=== PATIENT | male | born 1960 | race Caucasian/White ===

== ENCOUNTER 2016-09-15 18:50 | Inpatient (IN) | payer BC ==
[2016-09-15] MEDS ORDERED: Dextrose 50% Syringe 50 ML* 25 GM/50 ML SYRINGE IV PUSH PRN (21:00)
[2016-09-15 21:33] LABS: Hematocrit 45 % (42-52); Hemoglobin 14.7 g/dl (14.0-18.0); Mean Corpuscular HGB Conc 33 g/dl (31-36); Mean Corpuscular Hemoglobin 27 pg (27-31); Mean Corpuscular Volume 83 fL (80-94); Mean Platelet Volume 8 um3 (7.4-10.4); Red Cell Distribution Width 14 % (10.5-15); White Blood Count 9.6 10^3/ul (3.5-10.8)
[2016-09-15 21:47] LABS: Albumin 3.7 g/dL (3.2-5.2); BUN/Creatinine Ratio 22.2 (8-20); Calcium 8.7 mg/dL (8.6-10.3); EGFR African American 128.2 (>60); EGFR Non-African American 99.7 (>60); Globulin 2.8 g/dL (2-4); Total Bilirubin 0.3 mg/dL (0.2-1.0); Total Protein 6.5 g/dL (6.4-8.9)
[2016-09-15 21:51] LABS: Potassium 4.1 mmol/L (3.5-5.0)
[2016-09-15] MEDS ORDERED: Vancomycin(*) 1,500 MG in NS 0.9% 250 ML* 250 ML IVPB ONE (21:51)
[2016-09-15] MEDS ORDERED: Piperac/Tazob 3.375 gm in NS* 3.375 GM/100 ML BAG IVPB ONE (22:00)
[2016-09-15] MEDS ORDERED: Vancomycin(*) 0 MG in NS 0.9% 250 ML* 250 ML IVPB SCH (22:00)
[2016-09-15] MEDS ORDERED: Vancomycin per Pharmacy* NOTE FOLLOW UP PRN (22:02)
--- NOTE | 2016-09-15 22:43 | RAD ---
Indication: Right upper extremity edema. Duplex Doppler sonography of the right upper extremity deep venous system was performed. The right internal jugular vein demonstrates normal phasic flow. Bilaterally the subclavian veins demonstrates normal phasic flow. The right axillary vein, brachial vein, basilic vein, cephalic vein, radial vein and ulnar vein are patent and compressible. IMPRESSION: No evidence of deep venous thrombosis of the right upper extremity is noted.
[2016-09-15] MEDS: Heparin VIAL(*) 5000 UNITS/ML VIAL (FIVE THOUSAND) SUBCUT SCH (22:50)
[2016-09-16] MEDS: Insulin LISPRO* 1 UNITS UNIT SUBCUT SCH ×5 (01:13→20:53)
--- NOTE | 2016-09-16 01:35 | ED ---
Rik Lawrence Alok, scribed for Oswaldo Slade MD on 09/15/16 at 2131 . Skin Complaint - HPI Summary HPI Summary: 55M presents to the ED for erythema and edema of the right arm. Pt states what started as a bite on his right elbow turned to redness spreading from the right elbow down to right hand. [facility] and told to come to the ED if redness spread past certain point. Pt was given Keflex antibiotics. Pt denies fever, CP, SOB. Pt denies h/o DVT. Pt notes back problems and associated medications. PSHx includes gastric bypass surgery. - History of Current Complaint Chief Complaint: EDExtremityUpper Time Seen by Provider: 09/15/16 21:10 Stated Complaint: RIGHT ARM INFECTION COMMING FROM DR DONNA Echevarria Obtained From: Patient Onset/Duration: Started Days Ago, Still Present Skin Exposure Onset/Duration: Days Ago Timing: Constant Onset Severity: Moderate Current Severity: Moderate Pain Intensity: 0 Pain Scale Used: 0-10 Numeric Skin Location: Arm Character: Swelling, Redness - Allergy/Home Medications Allergies/Adverse Reactions: Allergies Allergy/AdvReac Type Severity Reaction Status Date / Time Morphine [From MS Contin] AdvReac Fatigue Verified 07/24/16 09:52 Home Medications: Home Medications Amitriptyline TAB* [Elavil TAB*] 20 mg PO BEDTIME 09/15/16 [History Confirmed ] Gabapentin CAP(*) [Neurontin 300 CAP(*)] 300 mg PO TID 09/15/16 [History Confirmed 09/15/16] fentaNYL PATCH 25 MCG/HR* [Duragesic PATCH 25 Mcg/Hr*] 25 mcg TRANSDERM Q72H [History Confirmed 09/15/16] metFORMIN* [Glucophage 500 MG TAB *] 500 mg PO QID 09/15/16 [History Confirmed 09/15/16] PMH/Surg Hx/FS Hx/Imm Hx Endocrine/Hematology History: Denies: Hx Diabetes Cardiovascular History: Denies: Hx Hypertension, Hx Pacemaker/ICD GI History: Reports: Hx Gastroesophageal Reflux Disease History: Denies: Hx Dialysis, Hx Renal Disease Musculoskeletal History: Reports: Hx Arthritis, Hx Back Problems Sensory History: Denies: Hx Hearing Aid Neurological History: Reports: Other Neuro Impairments/Disorders - PAIN CLINIC PATIENT Psychiatric History: Reports: Hx Anxiety, Hx Attention Deficit Hyperactivity Disorder, Hx Depression Denies: Hx Panic Disorder - Cancer History Cancer Type, Location and Year: right shoulder melanoma - Surgical History Surgery Procedure, Year, and Place: left wrist, right shoulder melanoma removed. Gastric by-pass 05/2003 Carpal tunnel 05/1994. RADIOFREQUENCY ABLATION THERAPY LSP 2006 Infectious Disease History: No Infectious Disease History: Denies: Traveled Outside the [place] in Last 30 Days - Family History Known Family History: Negative: Diabetes - Social History Occupation: Employed Full-time Alcohol Use: Rare Substance Use Type: Reports: None Substance Use Comment - Amount & Last Used: fentanyl patch and hydrocodone Smoking Status (MU): Former Smoker Type: Cigarettes, Cigars Review of Systems Negative: Fever, Chills, Skin Diaphoresis Negative: Erythema - EYES Negative: Sore Throat Negative: Chest Pain Negative: Shortness Of Breath, Cough Negative: Abdominal Pain, Vomiting, Nausea Negative: dysuria, hematuria Negative: Myalgia, Edema Positive: Other - erythema and swelling right arm Neurological: Other - Negative: Dizziness All Other Systems Reviewed And Are Negative: Yes Physical Exam - Summary Physical Exam Summary: Constitutional: Well-developed, Well-nourished, Alert. (-) Distressed Skin: Erythema induration right elbow spreading down to right hand. Distal pulses intact. HENT: Normocephalic; Atraumatic Eyes: Conjunctiva normal Neck: Musculoskeletal ROM normal neck. (-) JVD, (-) Stridor, (-) Tracheal deviation Cardio: Rhythm regular, rate normal, Heart sounds normal; Intact distal pulses; The pedal pulses are 2+ and symmetric. Radial pulses are 2+ and symmetric. (-) Murmur Pulmonary/Chest wall: Effort normal. (-) Respiratory distress, (-) Wheezes, (-) Rales Abd: Soft, (-) Tenderness, (-) Distension, (-) Guarding, (-) Rebound Musculoskeletal: Erythema induration right elbow spreading down to right hand. Distal pulses intact. Lymph: (-) Cervical adenopathy Neuro: Alert, Oriented x3 Psych: Mood and affect Normal Triage Information Reviewed: Yes Vital Signs On Initial Exam: Initial Vitals Temp Pulse Resp BP Pulse Ox 97.2 F 97 20 150/83 98 09/15/16 18:59 09/15/16 18:59 09/15/16 18:59 09/15/16 18:59 09/15/16 18:59 Vital Signs Reviewed: Yes - [place] Coma Scale Coma Scale Total: 15 Diagnostics - Vital Signs Vital Signs Temp Pulse Resp BP Pulse Ox 09/15/16 21:14 97.9 F 88 16 148/78 97 09/15/16 20:09 98.1 F 96 16 137/83 98 09/15/16 19:01 98.0 F 92 20 150/83 99 09/15/16 18:59 97.2 F 97 20 150/83 98 - Laboratory Result Diagrams: 09/15/16 21:25 09/15/16 21:25 Lab Statement: Any lab studies that have been ordered have been reviewed, and results considered in the medical decision making process. Course/Dx - Course Course Of Treatment: Spoke with Dr Smith who will is PT's PCP and will admit pt and make all future orders - Diagnoses Provider Diagnoses: Right arm cellulitis - Physician Notifications Discussed Care Of Patient With: Dr. Smith (Hospitalist and Pt PCP) @ 2114 - Will admit pt and is in charge of all future orders. Discharge - Discharge Plan Condition: Stable Disposition: ADMITTED TO [facility] Referrals: Colton Garcia, LOG DRIVER [Primary Care Provider] - The documentation as recorded by the Rik herrera Alok accurately reflects the service I personally performed and the decisions made by , Oswaldo Slade MD.
[2016-09-16] MEDS: Piperac/Tazob 3.375 gm in NS* 3.375 GM/100 ML BAG IVPB SCH ×3 (05:29→20:50)
--- NOTE | 2016-09-16 07:50 | PN ---
Subjective Date of Service: 09/16/16 Interval History: Mr. Mckeon notes that the redness to his right arm has decreased though he continues to have swelling from his elbow down into his hand. He denies other complaint including chest pain, SOB, nausea, or abdominal pain. Objective Active Medications: Hydrocodone Bitart/Acetaminophen ([place] 5-325 Tab*) 1 tab PO Q4H PRN Bupropion HCl (Wellbutrin Xl *) 450 mg PO QAM [facility] Dextrose (D50w Syringe 50 Ml*) 12.5 gm IV PUSH .FOR FS < 60 - SS PRN Gabapentin (Neurontin Cap(*)) 300 mg PO TID [facility] Heparin Sodium (Porcine) (Heparin Vial(*)) 5,000 units SUBCUT Q12HR [facility] Piperacillin Sod/Tazobactam Sod (Zosyn 3.375 Gm In Ns Premix*) 3.375 gm in 100 mls @ 25 mls/hr IVPB Q8H [facility] Vancomycin HCl 1,250 mg/ (Sodium Chloride) 250 mls @ 166.667 mls/hr IVPB Q8H [facility] Insulin Human Lispro (Humalog*) 0 units SUBCUT ACHS [facility] Metformin HCl (Glucophage*) 1,000 mg PO 0800,1700 [facility] Non-Formulary Medication (Magnesium Gluconate [Magnesium]) 30 mg PO DAILY [facility] Omeprazole (Prilosec Cap*) 20 mg PO BID [facility] Pharmacy Consult (Vancomycin Per Pharmacy*) 1 note FOLLOW UP . PRN Pharmacy Profile Note (Vancomycin Trough Check) 1 note FOLLOW UP 0730 ONE Potassium Chloride (Klor Con Er Tab*) 10 meq PO BID [facility] Trazodone HCl (Desyrel Tab*) 200 mg PO BEDTIME [facility] Vital Signs 09/15/16 09/15/16 09/15/16 21:14 22:01 22:44 Temperature 97.9 F 98.8 F 98.8 F Pulse Rate 88 88 88 Respiratory 16 16 16 Rate Blood Pressure 148/78 141/76 141/76 (mmHg) O2 Sat by Pulse 97 99 99 Oximetry 09/16/16 09/16/16 00:24 04:29 Temperature 97.6 F Pulse Rate 79 Respiratory 16 16 Rate Blood Pressure 131/70 (mmHg) O2 Sat by Pulse 98 Oximetry Oxygen Devices in Use Now: None Appearance: Male lying in bed in NAD Eyes: No Scleral Icterus Ears/Nose/Mouth/Throat: Mucous Membranes Moist Neck: NL Appearance and Movements; NL JVP, Trachea Midline Respiratory: Symmetrical Chest Expansion and Respiratory Effort, Clear to Auscultation Cardiovascular: NL Sounds; No Murmurs; No JVD, No Edema Abdominal: NL Sounds; No Tenderness; No Distention Lymphatic: No Cervical Adenopathy Extremities: - - Right upper extremity edema 1-2+ from elbow down to hand, minimal impairment to range of motion to right elbow with pain limited maximal extension Skin: - - draining abscess to right lateral elbow, superior to the olecranon head Neurological: Alert and Oriented x 3, NL Muscle Strength and Tone Result Diagrams: 09/15/16 21:25 09/15/16 21:25 Assess/Plan/Problems-Billing Assessment: Mr. Mckeon is a 55 yo male with a PMH of DM, gastric bypass surgery, and depression who was admitted on 09/15/16 with right arm cellulitis. - Patient Problems (1) Cellulitis of right arm Comment: Failed outpatient tx with keflex. Wound culture pending, high suspicion for MRSA, continue Zosyn and vanco for now. Good ROM without evidence of joint involvement. US ordered. (2) Depression Comment: Continue wellbutrin. (3) Diabetes Comment: Hold metformin. Continue lispro SSI coverage with meals. (4) DVT prophylaxis Comment: Heparin SQ. (5) Full code status Status and Disposition: Inpatient. Anticipate discharge to home.
[2016-09-16] MEDS ORDERED: Vancomycin(*) 1,250 MG in NS 0.9% 250 ML* 250 ML IVPB SCH (08:00)
[2016-09-16] MEDS ORDERED: metFORMIN* 1,000 MG TAB PO SCH (08:00)
[2016-09-16 08:54] LABS: C Reactive Protein 15.28 mg/L (< 5.00)
[2016-09-16] MEDS: Omeprazole CAP* 20 MG PO SCH ×2 (09:01→20:52)
[2016-09-16] MEDS: Heparin VIAL(*) 5000 UNITS/ML VIAL (FIVE THOUSAND) SUBCUT SCH ×2 (09:01→20:53)
[2016-09-16] MEDS: Gabapentin CAP(*) 300 MG PO SCH ×3 (09:02→20:51)
[2016-09-16] MEDS: BuPROPion XL* 150 MG TAB.XL PO SCH (09:04)
[2016-09-16] MEDS: Potassium Chlor TAB* 10 MEQ TAB.ER PO SCH ×2 (09:07→20:53)
[2016-09-16] MEDS: HYDROcodone/ACETAMIN 5-325 MG* 1 TAB PO PRN ×3 (09:18→23:52)
[2016-09-16] MEDS: MAGNESIUM GLUCONATE 30 MG PO SCH (09:40)
[2016-09-16] MEDS: Vancomycin(*) 1,250 MG in NS 0.9% 250 ML* 250 ML IVPB SCH ×2 (10:10→18:40)
--- NOTE | 2016-09-16 16:11 | RAD ---
HISTORY: Right elbow abscess COMPARISONS: None TECHNIQUE: Multiple transverse and longitudinal ultrasound images were obtained of the area of redness and palpable abnormality of the right elbow using grayscale and color Doppler imaging FINDINGS: There is extensive subcutaneous edema. There is a complex loculated fluid collection measuring 2.1 x 1 x 0.6 cm in size. There is no significant hypervascularity and color Doppler imaging. IMPRESSION: LOCULATED FLUID COLLECTION. GIVEN HISTORY OF REDNESS AND DRAINAGE, ABSCESS IS WITHIN THE DIFFERENTIAL. DEPENDING ON THE LOCATION, OLECRANON BURSITIS, INCLUDING COMPLICATED BURSITIS, IS ALSO WITHIN THE DIFFERENTIAL.
[2016-09-16] MEDS ORDERED: traZODone TAB* 100 MG PO SCH (21:00)
--- NOTE | 2016-09-16 21:20 | HP ---
HISTORY AND PHYSICAL: DATE OF ADMISSION: 09/15/16 CHIEF COMPLAINT: Right arm swelling. HISTORY OF PRESENT ILLNESS: Mr. Mckeon is a 55-year-old man with type 2 diabetes who I saw in the office on the day of admission for right arm swelling. The patient was in urgent care on 09/13/16 and diagnosed with cellulitis that was due apparently to 2 bug bites that he scratched. He had erythema and pain and a burning sensation in the arm. He was sent home on Keflex 500 mg p.o. t.i.d. Since being discharged from the urgent care, he has had the redness spreading proximal and distal to the markings made there on the skin at the margin of his cellulitis. He denies any fever since discharge. Since going home, he has not been elevating his arms and has been going to work which seems to worsen the pain. PAST MEDICAL HISTORY: Includes: 1. Sleep apnea. 2. History of obesity with bariatric surgery. 3. Type 2 diabetes. 4. Chronic back pain. 5. Depression with ADD. 6. History of peptic ulcer disease with bleeding ulcers x3. PAST SURGICAL HISTORY: For the patient includes: 1. Left wrist fracture repair in the past. 2. Carpal tunnel release, 1994. 3. Melanoma removed, 1996, from right shoulder. 4. Gastric bypass, 2003. MEDICATIONS ON ADMISSION: 1. Metformin 1000 mg p.o. b.i.d. 2. Flonase nasal spray daily. 3. Wellbutrin XL 450 mg p.o. q.a.m. 4. Trazodone 200 mg p.o. q.h.s. 5. Pantoprazole 40 mg p.o. b.i.d. 6. Adderall 20 mg p.o. t.i.d. The Adderall is prescribed through Dr. Frazier. 7. Hydrocodone with acetaminophen 1 tab p.o. q.4 hours as needed, prescribed at the pain clinic. 8. Gabapentin 300 mg p.o. t.i.d. 9. Magnesium and zinc daily. ALLERGIES: MORPHINE. FAMILY HISTORY: Notable for father with diabetes, alive at 76. Mother alive at 74 without any medical issues. 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 He is . He is a former smoker. Denies alcohol or drug use. REVIEW OF SYSTEMS: The patient denies any fevers, weight loss, or anorexia. The patient denies any chest pain or palpitations. The patient denies any cough or shortness of breath. The patient denies any abdominal pain, nausea, or vomiting. Remainder of 14-point review of systems is negative other than mentioned in the HPI. PHYSICAL EXAMINATION GENERAL: He is a well-appearing middle-aged man in no acute distress. VITAL SIGNS: Temperature is 97.6, pulse 92, respirations 14, blood pressure 136 /82, O2 sat is 94% on room air. HEENT: Head is normocephalic, atraumatic. Sclerae anicteric. Pupils equal, round, reactive to light and accommodation. Oropharynx is moist. No lesions or exudate. NECK: No JVD. No carotid bruit. No thyromegaly. LUNGS: Clear to auscultation and percussion bilaterally. HEART: Regular rate and rhythm without murmurs or gallops. ABDOMEN: Soft, nontender, nondistended. Positive bowel sounds. EXTREMITIES: No peripheral edema. Dorsalis pedis pulses 1+ bilaterally. SKIN EXAM: Notable for extensive edema with pitting edema distally in the right arm. There is erythema that extends from the elbow proximally up past some purple lines in the upper biceps and triceps region up into the shoulder and down to the wrist which extends past the lines that were drawn 3 days ago. There is tenderness in the elbow area. Full range of motion of the joint. There is a dry punctate ulcer on the forearm laterally and a dry ulcer with a central purulent discharge overlying the olecranon bursa on the right. Pus was expressed from this and sent to laboratory from my office. NEUROLOGIC: Cranial nerves II through XII are intact. Motor strength is 5/5 throughout. Deep tendon reflexes are symmetric. LABORATORY DATA/DIAGNOSTIC STUDIES: White count is 9.6, hemoglobin is 14.7, hematocrit of 45%, platelets are 307. D-dimer is less than 200. Sodium is 133 , potassium 4.1, chloride 102, bicarb 22, BUN 18, creatinine 0.81, glucose is 235, calcium 8.7. Bilirubin 0.3, AST 20, ALT 23. Albumin 3.7. C-reactive protein is 15.2. Venous Doppler of the right upper extremity shows no DVT. ASSESSMENT AND PLAN: A 55-year-old man with cellulitis and small abscess of the right upper extremity, failing outpatient treatment with Keflex. The patient may have noncompliance with elevation and medication leading to failure or he may have a resistant organism such as MRSA. The patient will be admitted to the hospital and have the right arm elevated. He will have vancomycin and Zosyn to cover strep and staph and MRSA, specifically more completely. The cultures taken from the elbow in the office will be followed and may guide therapy. The patient is immunosuppressed mildly due to his diabetes. We will hold his metformin due to risk of infection and give him sliding scale insulin and potentially start basal insulin while he is here in the hospital. For pain control, he will continue his outpatient regimen of hydrocodone which he uses for his back pain. For depression, he will continue on his Wellbutrin and we can skip the Adderall while he is here in the hospital. DVT prophylaxis will be with sequential compression devices and ambulation. He is full code and his healthcare proxy will be his . [id number]/[facility] #: [id number] TIFFANIE
[2016-09-17] MEDS: Vancomycin(*) 1,250 MG in NS 0.9% 250 ML* 250 ML IVPB SCH (01:32)
--- NOTE | 2016-09-17 04:06 | CONS ---
ORTHOPEDIC CONSULT NOTE: DATE OF CONSULT: 09/16/16 CHIEF COMPLAINT: Right elbow wound, right upper extremity cellulitis. HISTORY OF PRESENT ILLNESS: Mr. Mckeon is a 55-year-old right-hand dominant male who noticed mul tiple bug bites along his right elbow and forearm approximately 1 week ago. Over the next 3 days, ferny mazariegos developed some redness along his entire forearm. He had a burning sensation in his arm and went t o urgent care. He was placed on Keflex. He then saw Dr. Smith, his primary care physician, in the o ffice on 09/15/16 with significant right upper extremity cellulitis. He had small open wounds along his right posterior elbow from a superficial abscess, which was draining purulence, which was cultu red by Dr. Smith. Dr. Smith send him to the emergency room for admission to [facility]. A t this point, the patient has been on IV antibiotics for almost 24 hours. He reports that his eryth wisam and pain in the forearm is improved dramatically. He has 3/10 pain in the right elbow. This declan n is localized right at the area of the bug bite. He does not have pain with motion at the elbow. He denies any numbness or tingling. Denies any recent fever. PAST MEDICAL HISTORY: 1. Type 2 diabetes. 2. History of obesity. 3. Sleep apnea. 4. Chronic back pain. 5. Depression. 6. ADD. 7. Peptic ulcer disease with bleeding ulcers in the past. PAST SURGICAL HISTORY: 1. Bariatric surgery. 2. Melanoma excision. 3. Carpal tunnel release. 4. Left wrist fracture. CURRENT MEDICATIONS: 1. Metformin 1000 mg p.o. b.i.d. 2. Flonase nasal spray daily. 3. Wellbutrin 450 mg p.o. q.a.m. 4. Trazodone 200 mg p.o. q.h.s. 5. Pantoprazole 40 mg p.o. b.i.d. 6. Adderall 20 mg p.o. t.i.d. 7. Hydrocodone 1 tab p.o. q.4 hours p.r.n. for pain. 8. Gabapentin 300 mg p.o. t.i.d. 9. Magnesium and zinc daily. ALLERGIES: MORPHINE. FAMILY HISTORY: Paternal diabetes. 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 He is mar ried. Former smoker. No alcohol or recreational drug use. REVIEW OF SYSTEMS: Fourteen systems were reviewed with the patient today. Positive for right arm sw elling, warmth and drainage, recent bug bite. The patient denies any fevers, chills, chest pain, sh ortness of breath, nausea, vomiting, headache or dizziness. Otherwise, review of systems is negativ e or not relevant according to the patient. PHYSICAL EXAM: Current vitals: Temperature 98.1, pulse 77, blood pressure 116/72. General: The nhan allen is a well-nourished male, in no apparent distress, alert and oriented x3, pleasant mood and ap propriate affect. HEENT: Atraumatic, normocephalic. Pupils are equal, round and reactive to light . Chest: Unlabored breathing. Right lower extremity: The patient's skin is intact. He has some swelling with minimal erythema al jose armando the forearm. He does have 3 punctate open wounds with some minimal purulent drainage around the posterolateral elbow near the olecranon bursa. No palpable fluid masses. There is hardened tissue near the 3 punctate wounds, a healed punctate wound with a scab along the dorsal forearm. The patie nt has full range of motion, full extension and 120 degrees of flexion at the elbow with full supina tion and pronation. No pain with range of motion. 5/5 biceps and triceps strength distally. He kincaid s full motion in his fingers and wrists. Full sensation to light touch in all nerve distributions a nd 2+ palpable radial pulse. LABORATORY VALUES: White blood cell is 9.6. CRP 15.2. Sodium 133, potassium 4.1. Hematocrit 45, p latelets 307. D-dimer less than 200. BUN and creatinine 18 and 0.81. There is a venous Doppler of the right upper extremity showing no DVT. There is a soft tissue ultra sound about the elbow on 09/16/16 showing loculated fluid collection 2 x 1 x 0.6, as well as extensi ve subcutaneous edema. ASSESSMENT AND PLAN: Mr. Mckeon is a 55-year-old gentleman with superficial abscess along the ri t posterior elbow due to a bug bite. This is draining on its own. I cannot palpate any soft tiss ue or fluid collections worth formally incising at this time. The cellulitis is rapidly improving w ith the vancomycin and Zosyn. The patient has full range of motion at the elbow without any pain. I have low suspicion that this infection approaches the elbow joint. For now, I would continue the IV vancomycin and Zosyn as this is significantly improving the patient . The open wound should be allowed to drain and I will follow him daily. If he is discharged to [facility] on p.o. antibiotics, I would like to him to follow up in my office within the next 7 days. Micro biology from 09/15/16 shows staph growth, but unclear whether this is MRSA or not. The patient was previously made n.p.o. before I saw him for possible formal operative incision and d rainage. At this time, I will cancel that status and allow him to eat. We will continue to watch t his patient closely. For now, we will not plan any surgical intervention. [id number]/[facility] #: [id number]
[2016-09-17] MEDS: Piperac/Tazob 3.375 gm in NS* 3.375 GM/100 ML BAG IVPB SCH (05:17)
[2016-09-17] MEDS: HYDROcodone/ACETAMIN 5-325 MG* 1 TAB PO PRN (07:31)
[2016-09-17 07:37] VITALS: BP 106/70
[2016-09-17] MEDS: Omeprazole CAP* 20 MG PO SCH (07:49)
[2016-09-17] MEDS: Potassium Chlor TAB* 10 MEQ TAB.ER PO SCH (07:49)
[2016-09-17] MEDS: Heparin VIAL(*) 5000 UNITS/ML VIAL (FIVE THOUSAND) SUBCUT SCH (07:50)
[2016-09-17] MEDS: BuPROPion XL* 150 MG TAB.XL PO SCH (07:50)
[2016-09-17] MEDS: Gabapentin CAP(*) 300 MG PO SCH (07:50)
[2016-09-17] MEDS: Insulin LISPRO* 1 UNITS UNIT SUBCUT SCH (07:51)
[2016-09-17] MEDS: MAGNESIUM GLUCONATE 30 MG PO SCH (07:52)
[2016-09-17 08:02] LABS: Hematocrit 44 % (42-52); Hemoglobin 14.2 g/dl (14.0-18.0); Mean Corpuscular HGB Conc 33 g/dl (31-36); Mean Corpuscular Hemoglobin 27 pg (27-31); Mean Corpuscular Volume 83 fL (80-94); Mean Platelet Volume 8 um3 (7.4-10.4); Red Blood Count 5.24 10^6/ul (4.0-5.4); Red Cell Distribution Width 14 % (10.5-15); White Blood Count 8.1 10^3/ul (3.5-10.8)
--- NOTE | 2016-09-17 08:22 | PN ---
Subjective Date of Service: 09/17/16 Interval History: Mr. Mckeon reports feeling well this morning. He continues to note improvement in the pain and swelling to his right arm. He denies other complaint including chest pain, SOB, nausea, or abdominal pain. Objective Active Medications: Hydrocodone Bitart/Acetaminophen ([place] 5-325 Tab*) 1 tab PO Q4H PRN Bupropion HCl (Wellbutrin Xl *) 450 mg PO QAM [facility] Dextrose (D50w Syringe 50 Ml*) 12.5 gm IV PUSH .FOR FS < 60 - SS PRN Gabapentin (Neurontin Cap(*)) 300 mg PO TID [facility] Heparin Sodium (Porcine) (Heparin Vial(*)) 5,000 units SUBCUT Q12HR [facility] Piperacillin Sod/Tazobactam Sod (Zosyn 3.375 Gm In Ns Premix*) 3.375 gm in 100 mls @ 25 mls/hr IVPB Q8H [facility] Vancomycin HCl 1,250 mg/ (Sodium Chloride) 250 mls @ 166.667 mls/hr IVPB 0200, 1000,1800 [facility] Insulin Human Lispro (Humalog*) 0 units SUBCUT ACHS [facility] Non-Formulary Medication (Magnesium Gluconate [Magnesium]) 30 mg PO DAILY [facility] Pto:Nfm:Calcium 1000mg, Magnesium 400mg, Zinc 25mg 3 dose PO BID [facility] Omeprazole (Prilosec Cap*) 20 mg PO BID [facility] Pharmacy Consult (Vancomycin Per Pharmacy*) 1 note FOLLOW UP . PRN Pharmacy Profile Note (Vancomycin Trough Check) 1 note FOLLOW UP 0730 ONE Potassium Chloride (Klor Con Er Tab*) 10 meq PO BID [facility] Trazodone HCl (Desyrel Tab*) 200 mg PO BEDTIME [facility] Vital Signs 09/16/16 09/16/16 09/16/16 09:02 09:18 11:18 Temperature Pulse Rate Respiratory 16 16 18 Rate Blood Pressure (mmHg) O2 Sat by Pulse Oximetry 09/16/16 09/16/16 09/16/16 12:28 14:05 14:06 Temperature 98.1 F Pulse Rate 82 Respiratory 16 18 18 Rate Blood Pressure 130/77 (mmHg) O2 Sat by Pulse 97 Oximetry 09/16/16 09/16/16 09/16/16 16:05 16:07 19:28 Temperature 98.3 F 98.6 F Pulse Rate 81 81 Respiratory 18 16 17 Rate Blood Pressure 137/80 133/85 (mmHg) O2 Sat by Pulse 97 98 Oximetry 09/16/16 09/16/16 09/16/16 20:00 20:51 22:51 Temperature Pulse Rate Respiratory 16 16 16 Rate Blood Pressure (mmHg) O2 Sat by Pulse Oximetry 09/16/16 09/16/16 09/16/16 23:40 23:52 23:54 Temperature 98.1 F Pulse Rate 77 Respiratory 17 16 Rate Blood Pressure 137/119 116/72 (mmHg) O2 Sat by Pulse 98 Oximetry 09/17/16 09/17/16 09/17/16 01:52 04:33 07:31 Temperature 97.5 F Pulse Rate 64 Respiratory 16 17 16 Rate Blood Pressure 126/70 (mmHg) O2 Sat by Pulse 98 Oximetry 09/17/16 09/17/16 07:37 07:50 Temperature 97.7 F Pulse Rate 73 Respiratory 17 18 Rate Blood Pressure 106/70 (mmHg) O2 Sat by Pulse 97 Oximetry Oxygen Devices in Use Now: None Appearance: Male lying in bed in NAD Eyes: No Scleral Icterus Ears/Nose/Mouth/Throat: Mucous Membranes Moist Neck: Trachea Midline Respiratory: Symmetrical Chest Expansion and Respiratory Effort, Clear to Auscultation Cardiovascular: NL Sounds; No Murmurs; No JVD, No Edema Abdominal: NL Sounds; No Tenderness; No Distention Lymphatic: No Cervical Adenopathy Extremities: - - Erythema and edema to right arm mostly resolved. Skin: - - Persistent small draining wound to Neurological: Alert and Oriented x 3, NL Muscle Strength and Tone Nutrition: Taking PO's Result Diagrams: 09/17/16 07:52 09/15/16 21:25 Microbiology and Other Data: Microbiology 09/15/16 22:30 Aerobic Blood Culture - Preliminary Blood Venous No Growth Day 1 Anaerobic Blood Culture - Preliminary No Growth Day 1 09/15/16 22:25 Aerobic Blood Culture - Preliminary Blood Venous No Growth Day 1 Anaerobic Blood Culture - Preliminary No Growth Day 1 09/16/16 08:15 Gram Stain - Final Elbow Right Assess/Plan/Problems-Billing Assessment: Mr. Mckeon is a 55 yo male with a PMH of DM, gastric bypass surgery, and depression who was admitted on 09/15/16 with right arm cellulitis. - Patient Problems (1) Cellulitis of right arm Comment: MSSA, discharge to home on bactrim. Local wound care to keep area clean and dry. (2) Depression Comment: Continue wellbutrin. (3) Diabetes Comment: Resume metformin. (4) DVT prophylaxis Comment: Heparin SQ. (5) Full code status Status and Disposition: Inpatient. Discharge to home.
[2016-09-17 08:23] LABS: HDL Cholesterol 29.9 mg/dL
[2016-09-17] MEDS ORDERED: CALCIUM 1000 MG PO SCH (09:00)
[2016-09-17] MEDS ORDERED: MAGNESIUM 400 MG PO SCH (09:00)
[2016-09-17] MEDS ORDERED: ZINC 25 MG PO SCH (09:00)
[2016-09-17 09:24] LABS: Vancomycin Trough 14.3 mcg/mL
[2016-09-17] MEDS ORDERED: Vancomycin Trough Check NOTE FOLLOW UP ONE (10:00)
--- NOTE | 2016-09-17 13:16 | DS ---
[facility] MEDICINE DISCHARGE SUMMARY: DATE OF ADMISSION: 09/15/16 DATE OF DISCHARGE: 09/17/16 PRIMARY CARE PROVIDER: Dr. Jameel Smith. ATTENDING PHYSICIAN: Dr. Huseyin Rand *(dictation provided by Vanessa Moy NP ). PRIMARY DIAGNOSIS: Right arm abscess with methicillin-sensitive Staphylococcus aureus. SECONDARY DIAGNOSES: 1. Sleep apnea. 2. History of obesity with bariatric surgery. 3. Type 2 diabetes, non-insulin dependent. 4. Chronic back pain. 5. Depression with attention deficit disorder. 6. History of peptic ulcer disease. PAST SURGICAL HISTORY: 1. Left wrist fracture with repair in the past. 2. Carpal tunnel release, 1994. 3. Melanoma removed, 1996. 4. Gastric bypass, 2003. MEDICATIONS AT THE TIME OF DISCHARGE: 1. Bactrim DS 1 tab p.o. b.i.d. x7 days. 2. Metformin 1000 mg p.o. b.i.d. 3. Flonase nasal spray daily. 4. Wellbutrin XL 450 mg p.o. q.a.m. 5. Trazodone 200 mg p.o. q.h.s. 6. Pantoprazole 40 mg p.o. b.i.d. 7. Adderall 20 mg p.o. t.i.d. 8. Hydrocodone with acetaminophen 1 tab p.o. q.4 hours p.r.n. 9. Gabapentin 300 mg p.o. t.i.d. 10. Mag and zinc daily. HOSPITAL COURSE: Mr. Mckeon is a 55-year-old male with a past medical history as outlined above, who presented to the emergency room on 09/15/16 with concern for right arm swelling. Please see the dictated H and P from Dr. Smith for complete details. In brief, the patient had suspected a bug bite on his arm on 09/13/16 and was seen at urgent care for concern of erythema, pain, and burning to the arm. He was started on Keflex, but saw worsening of erythema, pain, and swelling and therefore came to see Dr. Smith in his office and then to the emergency room for evaluation. In the emergency room, Mr. cMkeon was found to have significant erythema and edema to his right arm with a wound to the posterolateral aspect of his right elbow that was draining pus. Cultures were obtained and the patient was admitted for IV antibiotics due to failure of outpatient treatment with Keflex. Mr. Mckeon has had good resolution of his edema and erythema on vancomycin and Zosyn, awaiting cultures today. Culture from the wound grew Staphylococcus aureus such as methicillin sensitive. Mr. Mckeon is stable to be discharged home today. Complete a course of Bactrim. He has good range of motion at the elbow. He did have a soft tissue ultrasound on 09/16/16, which showed concern for possible olecranon bursitis and for this reason, he did see Dr. Mcghee from Orthopedic Surgery who felt that there was no joint involvement based on clinical exam and that the abscess itself is draining well with no need for further incision and drainage. Mr. Mckeon is medically stable for discharge to home today to follow up with Dr. Smith in the office as needed. DISPOSITION: Home. DIET: Consistent carbohydrate. ACTIVITY: As tolerated. FOLLOWUP PLANS: Please follow up with Dr. Smith after this acute hospitalization. TIME SPENT: Approximately 60 minutes were spent on the discharge of this patient, more than half that time spent with the patient at the bedside reviewing the events leading up to this hospitalization, performing the physical examination, and reviewing the plan of care. VANESSA MOY NP CC: Dr. Jameel Smith* [id number]/[facility] #: [id number] TIFFANIE
== END 2016-09-17 11:00 | disposition home or self-care (01) | DRG 383 ==
LOC: ED 18:50 → MED 20:54 → ED 21:34
PROVIDERS: ADMIT Internal Medicine; ATTEND Internal Medicine
DX: L02.413 Cutaneous abscess of right upper limb (principal); F32.9 Major depressive disorder, single episode, unspecified; B95.61 Methicillin susceptible Staphylococcus aureus infection as the cause of diseases classified elsewhere; E11.9 Type 2 diabetes mellitus without complications; F98.8 Other specified behavioral and emotional disorders with onset usually occurring in childhood and adolescence; G47.33 Obstructive sleep apnea (adult) (pediatric); M54.9 Dorsalgia, unspecified; Z98.84 Bariatric surgery status; Z85.820 Personal history of malignant melanoma of skin; Z79.84 Long term (current) use of oral hypoglycemic drugs; Z79.899 Other long term (current) drug therapy; Z88.5 Allergy status to narcotic agent; Z83.3 Family history of diabetes mellitus; Z87.891 Personal history of nicotine dependence
CPT/HCPCS: 36415; 80053; 80061; 80202; 82947; 83036; 85025; 85379; 86140; 87040; 87070; 87077; 87186; 87205; A9270-GY; J1644; J2543; J3370

== ENCOUNTER 2018-04-25 14:25 | Inpatient (IN) | payer BC ==
[2018-04-25] MEDS ORDERED: Ondansetron INJ* 2 MG/ML VIAL IV ONE (14:50)
[2018-04-25] MEDS ORDERED: Pantoprazole IV* 40 MG IV ONE (14:50)
[2018-04-25] MEDS ORDERED: NS 0.9% 1000 ML* 1,000 ML IV ONE (14:50)
--- NOTE | 2018-04-25 15:29 | ED ---
GI/ HPI - HPI Summary HPI Summary: A 57 y/o male presents to [facility] with a chief complaint of hematemesis since . The patient claims that he has been vomiting without having a bowel movement. He rates his pain as 0/10. He also c/o abd pain describing it as burning and cramping. He states that he had an ulcer and had a scope done in 2008. He claims that his heart rate is not usually high, he is not nervous and he denies taking blood thinners. - History of Current Complaint Chief Complaint: EDGIBleed Time Seen by Provider: 04/25/18 14:48 Stated Complaint: VOMITING BLOOD, PAIN IN STOMACH Hx Obtained From: Patient Onset/Duration: Started Hours Ago, Still Present Timing: Constant, Lasting Hours Severity: Mild Current Severity: Mild Pain Intensity: 0 Location of Pain: Diffuse Pain Characteristics: Cramping, Burning Associated Signs and Symptoms: Positive: Abdominal Pain Aggravating Factor(s): Nothing Alleviating Factor(s): Nothing - Additional Pertinent History Primary Care Physician: JAYDON - Allergy/Home Medications Allergies/Adverse Reactions: Allergies Allergy/AdvReac Type Severity Reaction Status Date / Time morphine AdvReac Fatigue Verified 04/25/18 17:32 PMH/Surg Hx/FS Hx/Imm Hx Endocrine/Hematology History: Denies: Hx Diabetes Cardiovascular History: Denies: Hx Hypertension, Hx Pacemaker/ICD GI History: Reports: Hx Gastroesophageal Reflux Disease History: Denies: Hx Dialysis, Hx Renal Disease Musculoskeletal History: Reports: Hx Arthritis, Hx Back Problems Sensory History: Reports: Hx Contacts or Glasses Denies: Hx Hearing Aid Opthamlomology History: Reports: Hx Contacts or Glasses Neurological History: Reports: Other Neuro Impairments/Disorders - PAIN CLINIC PATIENT Psychiatric History: Reports: Hx Anxiety, Hx Attention Deficit Hyperactivity Disorder, Hx Depression Denies: Hx Panic Disorder - Cancer History Cancer Type, Location and Year: right shoulder melanoma - Surgical History Surgery Procedure, Year, and Place: left wrist, right shoulder melanoma removed. Gastric by-pass 05/2003 Carpal tunnel 05/1994. RADIOFREQUENCY ABLATION THERAPY LSP 2006 - Immunization History Date of Tetanus Vaccine: unknown Date of Influenza Vaccine: NO Infectious Disease History: No Infectious Disease History: Denies: Traveled Outside the [place] in Last 30 Days - Family History Known Family History: Negative: Diabetes - Social History Alcohol Use: None Substance Use Type: Reports: None Substance Use Comment - Amount & Last Used: fentanyl patch and hydrocodone Smoking Status (MU): Former Smoker Type: Cigarettes, Cigars Review of Systems Negative: Fever Positive: Abdominal Pain, Other - positive: hematemesis Negative: Anxious All Other Systems Reviewed And Are Negative: Yes Physical Exam - Summary Physical Exam Summary: GENERAL: Patient is a well-developed and nourished M who is lying comfortable in the stretcher. Patient is not in any acute respiratory distress. HEAD AND FACE: Normocephalic EYES: PERRLA, EOMI x 2. EARS: Hearing grossly intact. MOUTH: Oropharynx within normal limits. NECK: Supple, trachea is midline, no adenopathy, no JVD, no carotid bruit. CHEST: Symmetric, no tenderness at palpation LUNGS: Clear to auscultation bilaterally. No wheezing or crackles. CVS: Regular rate and rhythm, S1 and S2 present, no murmurs or gallops appreciated. ABDOMEN: Tender in epigastric area. Bowel sounds are normal. No abdominal abnormal pulsations. EXTREMITIES: Full ROM in all major joints, no edema, no cyanosis or clubbing. NEURO: Alert and oriented x 3. No acute neurological deficits. Speech is normal and follows commands. SKIN: Dry and warm : Dark stool consistent with melena. Triage Information Reviewed: Yes Vital Signs On Initial Exam: Initial Vitals Temp Pulse Resp BP Pulse Ox 97.9 F 108 20 139/76 99 04/25/18 14:33 04/25/18 14:33 04/25/18 14:33 04/25/18 14:33 04/25/18 14:33 Vital Signs Reviewed: Yes Diagnostics - Vital Signs Vital Signs Temp Pulse Resp BP Pulse Ox 04/25/18 14:33 97.9 F 108 20 139/76 99 - Laboratory Result Diagrams: 04/27/18 06:57 04/27/18 06:57 Lab Statement: Any lab studies that have been ordered have been reviewed, and results considered in the medical decision making process. - CT abdomen/pelvis CT Interpretation Completed By: Radiologist Summary of CT Findings: MILDLY ENLARGED MESENTERIC LYMPH NODES. FATTY INFILTRATION OF LIVER. POSTSURGICAL CHANGE TO THE UPPER GI TRACT. ED physician has reviewed this imaging report. - EKG 14:58 Cardiac Rate: Tachycardia - 102 bpm EKG Rhythm: Sinus Tachycardia Summary of EKG Findings: Sinus tachycardia at 102 bpm, q waves seen in inferior leads. GIGU Course/Dx - Course Course Of Treatment: A 57 y/o male presents to [facility] with a chief complaint of hematemesis since 04/24/18. Workup is remarkable with the physical exam revealing tenderness in the epigastric area. exam revealed dark stool consistent with melena. Lab results were obtained. In the ED course the patient was given Zofran IV, Protonix IV and Sodium Chloride IV. Abdomen/pelvis CT impression: MILDLY ENLARGED MESENTERIC LYMPH NODES. FATTY INFILTRATION OF LIVER. POSTSURGICAL CHANGE TO THE UPPER GI TRACT. Dx: GI bleed. Case discussed with Dr. Acuña, hospitalist. I discussed results with patient. The patient agrees with this plan. - Diagnoses Provider Diagnoses: GI bleed - Physician Notifications Discussed Care Of Patient With: Sarkis Acuña Time Discussed With Above Provider: 15:50 Instructed by Provider To: Admit As Inpatient - Critical Care Time Critical Care Time: 30-74 min Discharge - Sign-Out/Discharge Documenting (check all that apply): Patient Departure - Admit - Discharge Plan Condition: Stable Disposition: ADMITTED TO [facility] - Billing Disposition and Condition Condition: STABLE Disposition: Admitted to [facility] - Attestation Statements Document Initiated by Scribe: Yes Documenting Scribe: George Leal Provider For Whom Crsithian is Documenting (Include Credential): Dallas Ray MD Scribe Attestation: IGeorge, scribed for Dallas Ray MD on 04/28/18 at 1115. Scribe Documentation Reviewed: Yes Provider Attestation: The documentation as recorded by the George herrera accurately reflects the service I personally performed and the decisions made by me, Christa Ray MD Status of Scribe Document: Viewed
[2018-04-25 15:38] LABS: ABS Basophils 0 10^3/ul (0-0.2); ABS Eosinophils 0.1 10^3/ul (0-0.6); ABS Lymphocytes 2.5 10^3/ul (1.0-4.8); ABS Monocytes 0.8 10^3/ul (0-0.8); ABS Neutrophils 7.5 10^3/ul (1.5-7.7); ABS Nucleated RBC 0 10^3/ul; Eosinophil % 0.7 %; Hematocrit 38 % (42-52); Hemoglobin 12.4 g/dl (14.0-18.0); Lymphocyte % 22.7 %; Mean Corpuscular HGB Conc 33 g/dl (31-36); Mean Corpuscular Hemoglobin 27 pg (27-31); Mean Corpuscular Volume 81 fL (80-94); Mean Platelet Volume 8.2 fL (7.4-10.4); Nucleated Red Blood Cells % 0; Platelet Count 382 10^3/ul (150-450); Red Blood Count 4.67 10^6/ul (4.00-5.40); Red Cell Distribution Width 15 % (10.5-15); White Blood Count 10.9 10^3/ul (3.5-10.8)
[2018-04-25] MEDS ORDERED: Pantoprazole* 80 mg IN NS 80 MG/250 ML BAG IVPB ONE (15:41)
[2018-04-25 15:53] LABS: Activated Partial Thrombo Time 25.3 seconds (26.0-36.3); INR 1.01 (0.77-1.02)
[2018-04-25 16:06] LABS: Albumin 4.1 g/dL (3.2-5.2); Albumin/Globulin Ratio 1.6 (1-3); BUN/Creatinine Ratio 35.3 (8-20); Calcium 9.2 mg/dL (8.6-10.3); EGFR Non-African American 121.1 (>60); Globulin 2.5 g/dL (2-4); Potassium 4.1 mmol/L (3.5-5.0); Total Bilirubin 0.4 mg/dL (0.2-1.0); Total Protein 6.6 g/dL (6.4-8.9)
[2018-04-25] MEDS ORDERED: Iodixanol* (CONTRAST) 320 MG/ML 100 ML SDV IV ONE (16:14)
[2018-04-25 17:16] LABS: BUN/Creatinine Ratio 35.3 (8-20); Calcium 8.3 mg/dL (8.6-10.3); EGFR Non-African American 121.1 (>60); Potassium 4.1 mmol/L (3.5-5.0)
--- NOTE | 2018-04-25 18:28 | HP ---
HISTORY AND PHYSICAL: DATE OF ADMISSION: 04/25/18 PRIMARY CARE PROVIDER: Colton Garcia. ADMITTING PHYSICIAN: Sarkis Acuña MD. CHIEF COMPLAINT: Coffee-ground emesis for 1 day, nausea x2 days, abdominal pain x1 day, and blood per stool x1 day. HISTORY OF PRESENT ILLNESS: Zac Mckeon is a 57-year-old male, past medical history of [id number]-[id number] diabetes type 2; obstructive sleep apnea, on CPAP; obesity, status post gastric bypass in 2003; ADD and depression ; reported gastric ulcers; melanoma; hypertension, who has recently been without insurance and has missed many of his medications over the last month and including his pantoprazole. He has been taking ibuprofen 600 mg about 4 times per week for his chronic back pain. Two days prior to admission, he developed nausea and day prior to admission at 1300, he developed coffee-ground emesis multiple times along with brown/black pasty bowel movements. Also multiple times, he was lightheaded and dizzy and short of breath. He denied any chest pain. He had upper quadrants and epigastric abdominal pain with that same time. He presented to the emergency room and is referred to hospitalist service for admission for concern for upper GI bleed. His hemoglobin is 12.4. He is tachycardic in the low 100s with blotchy skin, preserved blood pressures. He has had a CT abdomen and pelvis, which is pending read that was with IV contrast only. I have contacted Dr. Anabelle Cuba for GI consultation. He was recommended continuing the PPI IV that he has already been started on, clear liquid diet if not n.p.o. or least n.p.o. after midnight for potential endoscopy procedure. PAST MEDICAL HISTORY: Hypertension; morbid obesity, status post gastric bypass ; obstructive sleep apnea, on CPAP; heo-jrxokep-bcwdnnkmh diabetes type 2; chronic back pain; depression; ADD; peptic ulcer disease, reportedly x3, though the patient's denies that he has ever bled from these. PAST SURGICAL HISTORY: Left wrist fracture repair, carpal tunnel release in 1994, melanoma in 1996 from right shoulder, gastric bypass in 2003. MEDICATIONS: Include: 1. Wellbutrin 450 mg p.o. q.p.m. 2. Zinc gluconate 30 mg p.o. daily. 3. Metformin 1000 mg b.i.d. 4. Trazodone 100 mg p.o. at bedtime. 5. Pantoprazole 40 mg p.o. b.i.d. 6. Multivitamin 1 capsule p.o. daily. 7. Lisinopril 20 mg p.o. daily. 8. Ibuprofen 600 mg p.o. b.i.d. (he takes less frequently, approximately 4 times a week). 9. Hydrocodone/acetaminophen 5/325 mg 1 tablet p.o. t.i.d. p.r.n. 10. Gabapentin 300 mg p.o. t.i.d. 11. Calcium carbonate/vitamin D3 one each p.o. b.i.d. 12. Adderall 20 mg p.o. t.i.d. Of note, he has ran out of most of these medications between 1 and 3 weeks due to insurance lapse. FAMILY HISTORY: His father had diabetes. His mother is healthy. 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 He is . His is his medical surrogate, Alyson Mckeon. He desires to be a full code. He is a former smoker for 2 to 3 years as a teenager and then continued cigar smoking until 10 years ago. He denies any excessive alcohol use or drug use. REVIEW OF SYSTEMS: A complete 14-point review of systems is negative except as per HPI. PHYSICAL EXAMINATION GENERAL APPEARANCE: No acute distress, sitting in hospital bed, but with blotchy skin throughout his upper and lower extremities. HEENT: Normocephalic, atraumatic. Pupils are equal, round, and reactive to light. Extraocular motions intact. No scleral icterus. NECK: Supple. No cervical lymphadenopathy. LUNGS: Clear to auscultation bilaterally with no wheezing, rales, or rhonchi. CARDIOVASCULAR: Regular, tachycardic. No murmurs, rubs, or gallops. ABDOMEN: Soft, tender in the epigastric region. No rebound. No guarding. No Addison's sign. EXTREMITIES: Warm, blotchy skin. Pulses intact. NEUROLOGIC: Moving all extremities. Cranial nerves are grossly intact. DIAGNOSTIC STUDIES/LAB DATA: White count 10.9, hemoglobin 12.4, hematocrit 38 , platelets 382. INR 1.01. Sodium 135, potassium 4.1, chloride 99, carbon dioxide 22, anion gap 14, BUN 24, creatinine 0.68, glucose 212, lactic acid 1.8. Total bili 0.40, AST 14, ALT 23, alk phos 59, troponin 0.00, albumin 4.1 , lipase 43. Imaging: CT abdomen and pelvis with IV contrast is sharp, but read pending. ASSESSMENT AND PLAN: Zac Mckeon is a 57-year-old male with history of gastric bypass surgery and ulcers 10 years ago, who has been without his PPI for the last 3 to 4 weeks, although continues to use 600 ibuprofen approximately 4 times a week, presenting with coffee-ground emesis and melena, concerning for upper gastrointestinal bleed, appreciate assistance of GI physician, Dr. Anabelle Orlando. Continue PPI IV. Continue IV fluids. Put him n.p.o. midnight. Clear liquids until then. Telemetry monitoring, inpatient admission to [facility]. Hold his ibuprofen, q.6 CBCs, maintain 2 large-bore IVs at all times, 16 gauge or above. For his bxj-kruynyj-laxehhpou diabetes mellitus, hold his metformin, given IV contrast study, put him on a sliding scale insulin, Lispro, and rkbiw-jj-mhcn testing q.a.c. h.s. Hold his lisinopril in the setting of GI bleed. Continue his gabapentin and hydrocodone and acetaminophen and Wellbutrin and trazodone. He is a full code. Medical surrogate is his , Alyson Mckeon. [id number]/[facility] #: [id number] MTDD
[2018-04-25] MEDS: NS 0.9% 1000 ML* 1,000 ML IV SCH (18:35)
[2018-04-25] MEDS: BuPROPion XL* 150 MG TAB.XL PO SCH (20:41)
[2018-04-25] MEDS: traZODone TAB* 100 MG PO SCH (20:42)
[2018-04-25] MEDS: HYDROcodone/ACETAMIN 5-325 MG* 1 TAB PO PRN (20:47)
[2018-04-25 21:26] LABS: ABS Basophils 0.1 10^3/ul (0-0.2); ABS Eosinophils 0.3 10^3/ul (0-0.6); ABS Lymphocytes 3.1 10^3/ul (1.0-4.8); ABS Monocytes 0.9 10^3/ul (0-0.8); ABS Neutrophils 5.6 10^3/ul (1.5-7.7); ABS Nucleated RBC 0 10^3/ul; Eosinophil % 2.8 %; Hematocrit 32 % (42-52); Hemoglobin 10.3 g/dl (14.0-18.0); Lymphocyte % 30.8 %; Mean Corpuscular HGB Conc 32 g/dl (31-36); Mean Corpuscular Hemoglobin 26 pg (27-31); Mean Corpuscular Volume 81 fL (80-94); Mean Platelet Volume 8.1 fL (7.4-10.4); Nucleated Red Blood Cells % 0; Platelet Count 310 10^3/ul (150-450); Red Blood Count 3.93 10^6/ul (4.00-5.40); Red Cell Distribution Width 15 % (10.5-15)
[2018-04-26] MEDS: NS 0.9% 1000 ML* 1,000 ML IV SCH (02:43)
[2018-04-26 03:38] LABS: ABS Basophils 0.1 10^3/ul (0-0.2); ABS Eosinophils 0.3 10^3/ul (0-0.6); ABS Lymphocytes 2.5 10^3/ul (1.0-4.8); ABS Monocytes 0.6 10^3/ul (0-0.8); ABS Neutrophils 3.4 10^3/ul (1.5-7.7); ABS Nucleated RBC 0 10^3/ul; Eosinophil % 4.9 %; Hematocrit 30 % (42-52); Hemoglobin 9.8 g/dl (14.0-18.0); Lymphocyte % 36.1 %; Mean Corpuscular HGB Conc 33 g/dl (31-36); Mean Corpuscular Hemoglobin 27 pg (27-31); Mean Corpuscular Volume 82 fL (80-94); Mean Platelet Volume 7.9 fL (7.4-10.4); Nucleated Red Blood Cells % 0; Platelet Count 283 10^3/ul (150-450); Red Blood Count 3.65 10^6/ul (4.00-5.40); Red Cell Distribution Width 15 % (10.5-15)
[2018-04-26 06:29] LABS: BUN/Creatinine Ratio 27.4 (8-20); Calcium 7.6 mg/dL (8.6-10.3); EGFR Non-African American 111.6 (>60)
[2018-04-26] MEDS ORDERED: Acetaminophen TAB* 325 MG PO PRN (07:45)
[2018-04-26] MEDS ORDERED: Ondansetron INJ* 2 MG/ML VIAL IV PRN (07:45)
[2018-04-26] MEDS: Gabapentin CAP(*) 300 MG PO SCH ×3 (08:51→20:22)
[2018-04-26] MEDS ORDERED: fentaNYL* 50 MCG/ML 2 ML VIAL (100 MCG VIAL) ONE (11:09)
[2018-04-26] MEDS ORDERED: Midazolam* 1 MG/ML 10 ML VIAL (10 MG) ONE (11:09)
--- NOTE | 2018-04-26 13:48 | PN ---
Subjective Date of Service: 04/26/18 Interval History: Patient is feeling ok today with decreased epigastric pain and no melena, hematochezia, or hematemesis. Patient denies palpitations, dizziness, CP, SOB, F /C, diarrhea, dysuria, or other pain. Family History: Unchanged from Admission Social History: Unchanged from Admission Past Medical History: Unchanged from Admission Objective Active Medications: Acetaminophen (Tylenol Tab*) 650 mg PO Q6H PRN PRN Reason: FEVER/PAIN Hydrocodone Bitart/Acetaminophen ([place] 5-325 Tab*) 1 tab PO TID PRN PRN Reason: PAIN Last Admin: 04/25/18 20:47 Dose: 1 tab Bupropion HCl (Wellbutrin Xl *) 450 mg PO QPM [facility] Last Admin: 04/25/18 20:41 Dose: 450 mg Gabapentin (Neurontin Cap(*)) 300 mg PO TID [facility] Last Admin: 04/26/18 08:51 Dose: 300 mg Ondansetron HCl (Zofran Inj*) 4 mg IV Q6H PRN PRN Reason: NAUSEA Pantoprazole Sodium (Protonix Tab (Nf)) 40 mg PO BID [facility] Trazodone HCl (Desyrel Tab*) 100 mg PO BEDTIME [facility] Last Admin: 04/25/18 20:42 Dose: 100 mg Vital Signs - 8 hr 04/26/18 04/26/18 04/26/18 07:18 08:00 08:51 Temperature 98.0 F Pulse Rate 87 Respiratory 16 18 18 Rate Blood Pressure 129/73 (mmHg) O2 Sat by Pulse 97 Oximetry Oxygen Devices in Use Now: None Appearance: Patient is a 57yo male who appears stated age and is sitting in the bed in [facility]. Eyes: No Scleral Icterus, PERRLA Ears/Nose/Mouth/Throat: NL Teeth, Lips, Gums, Clear Oropharnyx, Mucous Membranes Moist Neck: NL Appearance and Movements; NL JVP, Trachea Midline Respiratory: Symmetrical Chest Expansion and Respiratory Effort, Clear to Auscultation Cardiovascular: NL Sounds; No Murmurs; No JVD, RRR, No Edema Abdominal: No Hepatosplenomegaly, - - Epigastric tenderness. Lymphatic: No Cervical Adenopathy Extremities: No Edema, No Clubbing, Cyanosis Skin: No Rash or Ulcers, No Nodules or Sclerosis Neurological: Alert and Oriented x 3, NL Sensation, NL Muscle Strength and Tone , - - CN II-XII intact. Result Diagrams: 04/26/18 03:31 04/26/18 05:07 Microbiology and Other Data: Microbiology 04/25/18 15:13 Stool Occult Blood (PUNEET) - Final Stool Assess/Plan/Problems-Billing Assessment: Patient is a 57yo male with a PMH for Gastric Bypass with PUD, BEREKET, DM II, who presents with abdominal pain, hematemesis, and melena who was found to have a duodenal ulcer and has no signs of ongoing bleeding. - Patient Problems (1) Duodenal ulcer Current Visit: Yes Status: Acute Comment: - Likely due to lack of PPI and NSAIDs - Transition to oral PPI BID for 2 months - No signs of ongoing bleeding - Appreciate GI input and endoscopy. (2) Anemia Current Visit: Yes Status: Acute Code(s): D64.9 - ANEMIA, UNSPECIFIED SNOMED Code(s): 579755583 Comment: - Due to acute blood loss - Continue frequent H/H checks (3) Diabetes Current Visit: No Status: Acute Code(s): E11.9 - TYPE 2 DIABETES MELLITUS WITHOUT COMPLICATIONS SNOMED Code(s): 76388160 Comment: - Resume metformin at discharge (4) Depression Current Visit: No Status: Acute Code(s): F32.9 - MAJOR DEPRESSIVE DISORDER, SINGLE EPISODE, UNSPECIFIED SNOMED Code(s): 23035053 Comment: - Continue wellbutrin. (5) DVT prophylaxis Current Visit: No Status: Acute Code(s): KGT7129 - SNOMED Code(s): 938195144 Comment: - SCDs with GI bleed (6) Full code status Current Visit: No Status: Acute Code(s): Z78.9 - OTHER SPECIFIED HEALTH STATUS SNOMED Code(s): 037870479 Status and Disposition: Inpatient for management of GI bleeding.
[2018-04-26] MEDS: HYDROcodone/ACETAMIN 5-325 MG* 1 TAB PO PRN (13:50)
[2018-04-26] MEDS: BuPROPion XL* 150 MG TAB.XL PO SCH (17:25)
[2018-04-26] MEDS: Omeprazole CAP* 20 MG PO SCH (20:22)
--- NOTE | 2018-04-26 20:22 | CONS ---
GASTROENTEROLOGY CONSULT: DATE OF CONSULT: 04/26/18 CONSULTING PHYSICIAN: Sarkis Acuña; Colton Garcia NP. REASON FOR CONSULTATION: Hematemesis and passage of melena x24 hours after running out of pantoprazole about a month ago. HISTORY OF PRESENT ILLNESS: This 57-year-old man states that he ran out of his pantoprazole a month ago. He had not been following up with his primary office , stating he could not afford to go. He now intends to do so and has set up a payment program. He began experiencing cramping epigastric pain. Then, it became worse over the last several days and he developed vomiting, which quickly looked coffee ground in nature, the same color of his blood he was passing per rectum. He had numerous black thick tarry stools on 04/24/18. He started taking [facility]uprofen through [facility] via prescription 600 mg twice a day about 2 months ago. He has history of chronic back pain. His GI history is complex including bariatric bypass in 2003 at [facility]. One day postop, he was bleeding and had to be reexplored and uncertain modifications to the surgery were done. He was transfused. He did lose substantial weight over the next couple of years. About 9 or 10 years ago, living in [place], [place], he was having some signs of bleeding and had an upper endoscopy, where he says an ulcer was found. That was apparently his first upper endoscopy. He really does not know much of the details. PAST MEDICAL HISTORY: 1. Hypertension. 2. Substantial obesity - down from 310 to the low 200s. 3. Sleep apnea. 4. AODM. 5. Depression. 6. Chronic low back pain. 7. Status post gastric bypass. MEDICATIONS: As an outpatient: He did run out of many of these 1. Wellbutrin 450. 2. Metformin 1000 b.i.d. 3. Trazodone 100 h.s. 4. Pantoprazole 40 mg once or twice a day (lapsed). 5. Lisinopril 20. 6. Ibuprofen 600 b.i.d., though he misses some doses. 7. Hydrocodone/acetaminophen 5/325. 8. Gabapentin. 9. Adderall 20 mg t.i.d. FAMILY HISTORY: His father had diabetes. 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 His , he says, is disabled, having had neurologic complications from the flu in 1997. She is, however, able to drive on good days. He smoked cigars till 10 years ago. REVIEW OF SYSTEMS: No history of syncope, IA, palpitations, valvular disease, TB, hemoptysis, seizures, CVA, hepatitis, jaundice. He did have a colonoscopy more than 10 years ago in [place], [place], though he cannot recall why it was done or the results. He denies any history of gastrointestinal malignancy in the family. PHYSICAL EXAM: He is a surprisingly healthy-appearing, mildly overweight middle - aged man in no distress. HEENT exam is unremarkable. He has no icterus. He has no adenopathy. The lungs are clear and heart sounds are normal. The abdomen is obese with upper midline vertical scar. There is no incisional hernia. Rectal is deferred. Extremities show no edema and pulses are intact. Neurologic is nonfocal. He is alert, oriented, animated, and cooperative. DIAGNOSTIC STUDIES/LAB DATA: Labs - initially, hemoglobin 12.4, hematocrit 38. BUN 24, creatinine 0.68. LFTs normal. Albumin 4.1. Imaging - CT of the abdomen shows no acute abnormality. IMPRESSION: This 57-year-old man, status post bariatric surgery with an unknown revision, has longstanding chronic back pain and [facility] the [facility]. He is, therefore, on a number of pain medicines including ibuprofen, which has just been started in the last 2 months. Unfortunately, he stopped taking pantoprazole shortly after starting the ibuprofen. The reason he has required pantoprazole manager long term care is unclear as needing to start peptic therapy ( presumably for GERD) is unusual after bypass with successful weight loss. He may have an atypical configuration of his stomach given reexploration and revision of his bariatric surgery. The current situation is certainly a setup for peptic ulcer disease. His old records will be requested. Upper endoscopy is indicated. [id number]/[facility] #: [id number] [facility]ITAL[facility]
[2018-04-26 21:59] LABS: ABS Basophils 0 10^3/ul (0-0.2); ABS Eosinophils 0.4 10^3/ul (0-0.6); ABS Monocytes 0.6 10^3/ul (0-0.8); ABS Neutrophils 4.5 10^3/ul (1.5-7.7); ABS Nucleated RBC 0 10^3/ul; Hematocrit 29 % (42-52); Hemoglobin 9.4 g/dl (14.0-18.0); Lymphocyte % 26.5 %; Mean Corpuscular HGB Conc 32 g/dl (31-36); Mean Corpuscular Hemoglobin 27 pg (27-31); Mean Corpuscular Volume 83 fL (80-94); Nucleated Red Blood Cells % 0; Platelet Count 269 10^3/ul (150-450); Red Blood Count 3.52 10^6/ul (4.00-5.40); Red Cell Distribution Width 15 % (10.5-15); White Blood Count 7.5 10^3/ul (3.5-10.8)
[2018-04-26] MEDS: traZODone TAB* 100 MG PO SCH (23:04)
[2018-04-27 07:12] LABS: ABS Basophils 0 10^3/ul (0-0.2); ABS Eosinophils 0.3 10^3/ul (0-0.6); ABS Lymphocytes 1.6 10^3/ul (1.0-4.8); ABS Monocytes 0.5 10^3/ul (0-0.8); ABS Neutrophils 3.6 10^3/ul (1.5-7.7); ABS Nucleated RBC 0 10^3/ul; Eosinophil % 5.1 %; Hematocrit 30 % (42-52); Hemoglobin 9.8 g/dl (14.0-18.0); Lymphocyte % 26.9 %; Mean Corpuscular HGB Conc 33 g/dl (31-36); Mean Corpuscular Hemoglobin 27 pg (27-31); Mean Corpuscular Volume 82 fL (80-94); Mean Platelet Volume 8.1 fL (7.4-10.4); Nucleated Red Blood Cells % 0; Platelet Count 257 10^3/ul (150-450); Red Blood Count 3.63 10^6/ul (4.00-5.40); Red Cell Distribution Width 16 % (10.5-15); White Blood Count 6.1 10^3/ul (3.5-10.8)
[2018-04-27 07:23] LABS: BUN/Creatinine Ratio 14.8 (8-20); Calcium 7.8 mg/dL (8.6-10.3); EGFR Non-African American 137.2 (>60); Magnesium 2.2 mg/dL (1.9-2.7); Potassium 3.8 mmol/L (3.5-5.0)
[2018-04-27] MEDS: Gabapentin CAP(*) 300 MG PO SCH (07:37)
[2018-04-27] MEDS: Omeprazole CAP* 20 MG PO SCH (07:38)
[2018-04-27 07:39] VITALS: BP 110/72
--- NOTE | 2018-04-28 03:42 | DS ---
CC: Colton Garcia NP; Dr. Rose Kaplan; Dr. Dav Claire.* DISCHARGE SUMMARY: DATE OF ADMISSION: 04/25/18 DATE OF DISCHARGE: 04/27/18 PRIMARY CARE PROVIDER: Colton Garcia NP. MY ATTENDING WHILE IN THE HOSPITAL: Dr. Rose Kaplan* (dictated by POWER Jaime). [employer]ER[employer] LITIGATION SECRETARY: Dr. Dav Claire. PRIMARY DISCHARGE DIAGNOSIS: Duodenal ulcer. SECONDARY DISCHARGE DIAGNOSES: 1. Hypertension. 2. Morbid obesity, status post gastric bypass. 3. Obstructive sleep apnea. 4. Non-insulin dependent diabetes mellitus type 2. 5. Chronic back pain. 6. Depression. 7. Attention deficit disorder. 8. History of peptic ulcer disease. STUDIES DONE WHILE IN THE HOSPITAL: Abdomen and pelvis CT from 04/25/18 read as mildly large mesenteric lymph nodes, fatty infiltration of the liver. Postsurgical change of the upper GI tract. EGD showed large duodenal ulcer, without active bleeding. MEDICATIONS AT DISCHARGE: 1. Zinc gluconate 30 mg p.o. daily. 2. Multivitamin 1 cap p.o. daily. 3. Amphetamine salts 20 mg p.o. t.i.d. 4. [place] 5/325, 1 tab p.o. t.i.d. as needed. 5. Metformin 500 mg p.o. 4 times a day. 6 Gabapentin 300 mg p.o. t.i.d. 7. Wellbutrin 450 mg q.p.m. 8. Pantoprazole 40 mg p.o. b.i.d. 9. Trazodone 100 mg p.o. at bedtime. 10. Calcium carbonate 1 tab p.o. b.i.d. 11. Tylenol 650 mg p.o. q.6 hours as needed. HOSPITAL COURSE: Mr. Mckeon is a 57-year-old male with past medical history significant for the above, who has not been taking his pantoprazole over the last month due to not being able to maintain a prescription. Patient also had been prescribed ibuprofen for his low back pain, which he had been prescribed for twice a day, but states he had been taking it up to 4 times a week. Two days prior to admission, he developed nausea and coffee-ground emesis with black pasty stool, as well as dizziness and shortness of breath. Patient denied chest pain. Patient had epigastric abdominal pain that was reproducible with palpation. The patient, in the emergency department, was tachycardic, borderline hypotensive. Patient had a CT of his abdomen and pelvis, which was read as above. Patient was admitted to the hospital for IV PPI therapy. Patient's hemoglobin trended down from initially 12.4 to a low of 9.4. Patient had an EGD on 04/26/18, with Dr. Dav Claire of Gastroenterology, which patient tolerated well, and it showed nonbleeding gastric ulcer. Patient was transitioned to oral PPI therapy. Patient was able to tolerate initially clear liquids and full liquid diet. Patient's blood pressure remained in the normotensive range throughout his hospitalization and his heart rate trended down with last recorded heart rate being 74. Patient had no issues with ambulation. No further melena or hematemesis. Patient was stable and amenable for discharge on 04/27/18 for followup with Gastroenterology and his primary care provider. PHYSICAL EXAM ON DAY OF DISCHARGE: General: The patient is a 57-year-old male who appears stated age and sitting comfortably on the bed, in no acute distress. Vital Signs: At the time of discharge, temperature 97.9, pulse rate of 74, respiratory rate 18, oxygen saturation 99% on room air, blood pressure 110/72. HEENT: Head is normocephalic and atraumatic. Sclerae are anicteric. No conjunctival injection. Nasal mucosa moist. Oral mucosa moist. No pharyngeal erythema, discharge or exudate. Neck: Supple, nontender. No lymphadenopathy. No carotid bruits auscultated. No JVD. Cardiac: Regular rate and rhythm. No clicks, murmurs, gallops or rubs. Pulses are 2+ in the bilateral dorsalis pedis, posterior tibialis and radial areas. Respiratory: Clear to auscultation bilaterally. No wheezes, rales or rhonchi. Good air exchange bilaterally. Abdomen: Soft, tender to palpation over the epigastric area, without rebound or guarding. Bowel sounds present. Normoactive in all 4 quadrants. No hepatosplenomegaly. No abdominal bruits auscultated. No hepatojugular reflux. Genitourinary: No suprapubic or CVA tenderness. Skin: Clean, dry, and intact. No rash. Psychiatric: Pleasant and cooperative. DISCHARGE PLAN: The patient will be discharged to home. The patient is to follow up with Dr. Dav Claire of Gastroenterology in 1 to 2 months for monitoring of his PPI therapy. Patient should be on b.i.d. pantoprazole for at least this long. Patient is to follow up with his primary care provider for repeat hemoglobin and hematocrit to assess for ongoing blood loss. Patient should return to the hospital for alarming symptoms such as passing out, repeat hematemesis or hematochezia. Patient should follow up with the [facility] for other considerations for pain management besides ibuprofen, patient should avoid NSAIDs. The patient should have a bland diet and engage in activities as tolerated. TIME SPENT: Approximately 60 minutes were spent on the discharge of this patient, 30 of which was spent [id number] with the patient obtaining history and physical and discussing treatment plan. POWER JAIME [id number]/[facility] #: [id number] TIFFANIE
--- NOTE | 2018-04-29 16:33 | PRO ---
DATE: 04/26/18 REFERRING PHYSICIAN : Jameel Smith PROCEDURE: Upper gastrointestinal endoscopy and CLOtest INDICATION: This 57-year-old man who had bariatric bypass in 2003. He has been taking ibuprofen for chronic pain situation. He also ran out of his maintenance pantoprazole. The reason for starting the pantoprazole is not known. He developed some bloody emesis, also loose melenic stool. See separate consultation. ENDOSCOPIST: Dr. Claire MEDICATIONS: Midazolam 6; fentanyl 75. FINDINGS: He is a moderately overweight middle-aged man, in no distress. EGD: Larynx - narrow, symmetric views. Esophagus - easily entered, the mucosa is normal in the upper, mid esophagus and then a moderate circumferential erosive esophagitis is seen for about 35 down. There is severe esophagitis from 38 to 40. There is no deep ulcer, but just an extensive circumferential erosive change. There is no active bleeding. Stomach - large organ is entered and rugal folds appear normal. There is no obvious postoperative change seen and the chamber does not appear to be a pouch. The EG junction is normal in retroflexion, other than some laxity. The gastric fundus is normal. The antrum is unremarkable, though the pylorus is somewhat deformed. Entering into small bowel (unclear if through anastomosis or natural pylorus) there is clearly an ulcer seen. Duodenum -anterior duodenal bulb deep ulcer with stigmata at the base. It is deep and chronic without active bleeding or a clot. Rest of the duodenum is normal. IMPRESSION: 1. Severe erosive gastroesophageal reflux disease. 2. Small hiatal hernia. 3. Deep duodenal ulcer. Addendum: Clotest negative 4. Surgical anatomy - unclear and records are requested from [facility] in [place]. [id number]/[facility] #: [id number] [facility]
== END 2018-04-27 10:10 | disposition home or self-care (01) | DRG 241 ==
LOC: ED 14:25 → MED 16:38
PROVIDERS: ADMIT Internal Medicine; ATTEND Student in an Organized Health Care Education/Training Program
PROC: 0DD68ZX Extraction of Stomach, Via Natural or Artificial Opening Endoscopic, Diagnostic (ICD-10-PCS; principal; 2018-04-26)
DX: K26.7 Chronic duodenal ulcer without hemorrhage or perforation (principal); D62 Acute posthemorrhagic anemia; E66.01 Morbid (severe) obesity due to excess calories; K21.0 Gastro-esophageal reflux disease with esophagitis; K44.9 Diaphragmatic hernia without obstruction or gangrene; G47.33 Obstructive sleep apnea (adult) (pediatric); E11.9 Type 2 diabetes mellitus without complications; M54.9 Dorsalgia, unspecified; I10 Essential (primary) hypertension; K92.1 Melena; K92.0 Hematemesis; F98.8 Other specified behavioral and emotional disorders with onset usually occurring in childhood and adolescence; F32.9 Major depressive disorder, single episode, unspecified; Z98.84 Bariatric surgery status; Z68.32 Body mass index [BMI] 32.0-32.9, adult; Z79.84 Long term (current) use of oral hypoglycemic drugs; Z85.820 Personal history of malignant melanoma of skin; Z79.1 Long term (current) use of non-steroidal anti-inflammatories (NSAID); Z79.899 Other long term (current) drug therapy; Z83.3 Family history of diabetes mellitus; Z87.891 Personal history of nicotine dependence
CPT/HCPCS: 36415; 74177; 80048; 80053; 82272; 83605; 83690; 83735; 84484; 85025; 85610; 85730; 86850; 86900; 86901; 87077; 90686; 93005; 99156; 99157; 99284; A9270-GY; J2250; J2405; J3010; Q9967

== ENCOUNTER 2018-08-22 18:36 | Emergency (ER) | payer BC ==
--- OUTSIDE RECORDS SUMMARY | 2018-08-22 18:53 | XMS REPORT | Continuity of Care Document ---
:1960 External Reference #:[id number] Author Name Giovannyjenny Rosy Care Team Providers Name Role Phone Andreas Sousa III, MD Primary Care Physician Unavailable Payers Date Identification Numbers Payment Provider Subscriber Policy Number: [id number] BS Facets Zac Mckeon PayID: [id number] [address] [address] [place] [address] Advance Directives Description No Information Available Problems Date Description Provider Status Onset: 05/11/2015 Depressive disorder Colton Garcia NP Active Onset: 05/11/2015 Chronic pain Colton Garcia NP Active Onset: 04/17/2016 Type 2 diabetes mellitus Colton Garcia NP Active Onset: 04/17/2016 Sleep apnea Colton Garcia NP Active Onset: 09/16/2016 History of bariatric surgical [facility] M.D.,[facility] Active procedure Onset: 04/26/2018 Acute duodenal ulcer with Dav Claire MD Active hemorrhage Note: deep chronic ulcer seen Family History Date Family Member(s) Observation Comments Father Diabetes 76 Mother No Current Problems 74 Social History Type Date Description Comments Sex Unknown Marital Status Lives With Spouse 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 ETOH Use Denies alcohol use Tobacco Use Start: Unknown End: Patient is a former Unknown smoker Smoking Status Reviewed: 08/05/18 Patient is a former smoker Exercise Type/Frequency Does not exercise Allergies, Adverse Reactions, Alerts Date Description Reaction Status Severity Comments 05/10/2015 Morphine Active 05/10/2015 NKDA Inactive Medications Medication Date Status Form Strength Qnty SIG Indications Ordering Provider Suprep Bowel 07/03 Active Solution 17.5-3.13 354ml 08/05/18 pt Wendy Prep /2018 -1.6GM/17 reports FLAKITO Hidalgo 7ML finished take according to the instructions you received the afternoon before and morning of your procedure Pantoprazole 05/[address] 40mg 60tab 1 by mouth Colton Sodium s twice daily FLAKITO Garcia Lisinopril 04/16 Active Tablets 20mg 30tab take one I10 Colton s tablet by FLAKITO Garcia mouth every day Jardiance 01/15 Active Tablets 25mg 30tab take one E11.65 Colton s tablet by FLAKITO Garcia mouth every day Blood Glucose 10/16 Active Kit W/Device 1unit check blood E11.65 Colton Monitoring s sugar 2-3 FLAKITO Garcia System times daily. fasting in the morning and one or two other times during the day Blood Glucose 10/16 Active Strips 100un check blood E11.65 Colton Test its glucose 2-3 FLAKITO Garcia times daily Lancets 30G 10/16 Active Misc 30G 100un Use 2 to 3 E11.65 Colton its times daily FLAKITO Garcia Metformin HCL 04/17 Active Tablets 500mg 120ta take two E11.9 bs tablets by FLAKITO Garcia mouth every morning and take two tablets by mouth every evening Wellbutrin XL 05/10 Active Tablets ER 150mg 90tab take three 24HR s tablets by FLAKITO Garcia mouth every day Trazodone HCL Active Tablets 100mg 2 by mouth Unknown /0000 every night at bedtime Adderall Active Tablets 20mg 1 by mouth 3x Unknown /0000 a day Gabapentin Active Capsules 300mg tid Unknown /0000 Multivitamin Active Tablets 2 po qd Unknown Adult /0000 Zinc Gluconate Active 3mg. Daily Unknown /0000 Table Rock Active Tablets 5-325mg one tab by Unknown /0000 mouth tid as needed Lisinopril 01/15 Hx Tablets 10mg 30tab take one I10 Colton s tablet by FLAKITO Garcia - mouth every Pantoprazole 01/[address] 20mg 180ta Take One Colton Sodium bs Tablet By FLAKITO Garcia - Mouth Twice A Pantoprazole 12/[address] 40mg 180ta 1 by mouth Colton Sodium bs twice a day FLAKITO Garcia - 01/15 Jardiance 10/16 Hx Tablets 10mg 30tab 1 by mouth E11.65 Colton s every morning Radha CREATIVE ARTS THERAPIST - 01/15 Lancets 28G 10/16 Hx Misc 28G 100un 2-3 times E11.65 Colton /2017 its daily Radha CREATIVE ARTS THERAPIST - 10/16 Bactrim DS 09/17 Hx Tablets 800-160mg 14tab 1 by mouth s twice a day - for 7 days 09/24 Fluticasone 04/17 Hx Suspension 50mcg/Act 16gm 2 sprays each J01.90 Colton Propionate nostril qd. FLAKITO Garcia - 04/29 Hydrocodone Hx Tablets 5-300mg 1 po q4-6hr Unknown Bitartrate/Justin /0000 taminophen - 04/29 Amitriptyline Hx Tablets 10mg take 1 Unknown HCL /0000 tablets every - night at 04/17 bedtime /2015 Calcium Hx Unknown Magnesiu Zinc /0000 - 04/29 Potassium Hx Tablets ER 595mg 1 po bid Unknown Gluconate ER /0000 - 04/29 Cephalexin Hx Capsules 500mg Take One Unknown /0000 Capsule By - Mouth Two 09/18 Times A Day /2016 For 10 Days Immunizations CPT Code Status Date Vaccine Reaction Lot # [id number] Given 04/28/2017 Influenza Virus Vaccine, Quadrivalent, Split, Preservative Free [id number] Given 07/17/2016 Pneumonia Vaccine no immediated reaction [id number] noted .. pt tolereted well .. [id number] Given 07/17/2016 Tdap - no immediate reation [id number] Tetanus/Diptheria/Acellula noted .. pt tolerated r Pertussis well .. [id number] Given 02/10/2016 Flu Vaccine NOS Vital Signs Date Vital Result Comment 08/05/2018 10:32am Height 66.75 inches 5'6.75" Weight 191.00 lb Heart Rate 73 /min BP Systolic Sitting 114 mmHg BP Diastolic Sitting 72 mmHg Body Temperature 97.2 F O2 % BldC Oximetry 97 % BMI (Body Mass Index) 30.1 kg/m2 06/17/2018 3:02pm Height 66.75 inches 5'6.75" Weight 197.12 lb Heart Rate 80 /min BP Systolic 119 mmHg BP Diastolic 73 mmHg Respiratory Rate 18 /min Body Temperature 97.3 F O2 % BldC Oximetry 100 % BMI (Body Mass Index) 31.1 kg/m2 05/01/2018 9:46am Height 66.75 inches 5'6.75" Weight 198.00 lb Heart Rate 87 /min BP Systolic 118 mmHg BP Diastolic 71 mmHg Body Temperature 97.8 F O2 % BldC Oximetry 99 % BMI (Body Mass Index) 31.2 kg/m2 04/16/2017 9:19am Height 66.75 inches 5'6.75" Weight 201.00 lb Heart Rate 88 /min BP Systolic Sitting 144 mmHg BP Diastolic Sitting 90 mmHg BP Systolic Recheck 142 mmHg BP Diastolic Recheck 86 mmHg Body Temperature 96.8 F O2 % BldC Oximetry 96 % BMI (Body Mass Index) 31.7 kg/m2 01/15/2017 9:00am Weight 203.00 lb Heart Rate 91 /min BP Systolic Sitting 168 mmHg BP Diastolic Sitting 90 mmHg BP Systolic Recheck 138 mmHg BP Diastolic Recheck 88 mmHg O2 % BldC Oximetry 98 % 10/16/2016 10:33am Weight 210.00 lb Heart Rate 89 /min BP Systolic 140 mmHg BP Diastolic 80 mmHg Body Temperature 98.4 F O2 % BldC Oximetry 98 % 09/18/2016 11:51am Weight 214.00 lb Heart Rate 83 /min BP Systolic Sitting 136 mmHg BP Diastolic Sitting 86 mmHg O2 % BldC Oximetry 98 % 09/15/2016 5:00pm Weight 213.00 lb boots Heart Rate 92 /min BP Systolic 136 mmHg BP Diastolic 82 mmHg Body Temperature 97.6 F O2 % BldC Oximetry 94 % 07/17/2016 10:37am Weight 205.00 lb with shoes Heart Rate 87 /min BP Systolic 122 mmHg BP Diastolic 90 mmHg BP Systolic Recheck 120 mmHg BP Diastolic Recheck 86 mmHg O2 % BldC Oximetry 98 % 04/17/2016 10:04am Weight 203.00 lb Heart Rate 76 /min BP Systolic Sitting 132 mmHg BP Diastolic Sitting 84 mmHg Respiratory Rate 15 /min Body Temperature 98.9 F O2 % BldC Oximetry 98 % 06/14/2015 9:45am Weight 213.75 lb Heart Rate 88 /min BP Systolic Sitting 139 mmHg BP Diastolic Sitting 97 mmHg Body Temperature 98.6 F O2 % BldC Oximetry 98 % 05/10/2015 2:50pm Height 66.75 inches 5'6.75" Weight 212.00 lb Heart Rate 100 /min BP Systolic Sitting 158 mmHg BP Diastolic Sitting 90 mmHg Body Temperature 96.4 F O2 % BldC Oximetry 98 % BMI (Body Mass Index) 33.4 kg/m2 Results Test Date Facility Test Result H/L Range Note Laboratory test 08/05/2018 [employer] [facility] House Hemoglobin A1c 6.9% 5-7 finding Urine Microalbumin 06/18/2018 [facility] Ur Microalbumin < 15.[address] (mg/L) [place] [address] [phone] Urine Creatinine 66.23 mg/dL Urine Microalbumin/Creatinine TNP <31 1 Iron & Iron 06/18/2018 [facility] Total Iron 636 g/dL High 250-[address] [place] [address] Capacity [phone] Transferrin 454 mg/dL High 203-362 Iron < 17 g/dL Low 50-212 Unsaturated Iron Binding < 621 g/dL % Iron Saturation 3 % Low 15-55 CBC Auto Diff 06/18/2018 [facility] White Blood 6.4 10^3/uL N 3.5-10.[address] Count [place], [place] [id number] [phone] Red Blood Count 5.11 10^6/uL N 4.00-5.40 Hemoglobin 10.9 g/dL Low 14.0-18.0 Hematocrit 36 % Low 42-52 Mean Corpuscular Volume 71 fL Low 80-94 Mean Corpuscular Hemoglobin 21 pg Low 27-31 Mean Corpuscular HGB Conc 30 g/dL Low 31-36 Red Cell Distribution Width 21 % High 10.5-15 Platelet Count 460 10^3/uL High 150-450 Mean Platelet Volume 7.7 fL N 7.4-10.4 Abs Neutrophils 3.0 10^3/uL N 1.5-7.7 Abs Lymphocytes 2.0 10^3/uL N 1.0-4.8 Abs Monocytes 0.8 10^3/uL N 0-0.8 Abs Eosinophils 0.5 10^3/uL N 0-0.6 Abs Basophils 0.1 10^3/uL N 0-0.2 Abs Nucleated RBC 0 10^3/uL Granulocyte % 47.2 % Lymphocyte % 31.3 % Monocyte % 12.7 % Eosinophil % 7.5 % Basophil % 1.3 % Nucleated Red Blood Cells % 0 Cell Morphology 06/18/2018 [facility] Microcytosis 2+ [address] [place] [address] [phone] Hypochromasia 2+ Anisocytosis 2+ Comp Metabolic Panel 06/18/2018 [facility] Sodium 136 mmol/L N 135-145 [address] [place] [address] [phone] Potassium 4.4 mmol/L N 3.5-5.0 Chloride 105 mmol/L N 101-111 Co2 Carbon Dioxide 22 mmol/L N 22-32 Anion Gap 9 mmol/L N 2-11 Glucose 161 mg/dL High 70-100 Blood Urea Nitrogen 15 mg/dL N 6-24 Creatinine 0.67 mg/dL N 0.67-1.17 BUN/Creatinine Ratio 22.4 High 8-20 Calcium 8.8 mg/dL N 8.6-10.3 Total Protein 6.5 g/dL N 6.4-8.9 Albumin 4.3 g/dL N 3.2-5.2 Globulin 2.2 g/dL N 2-4 Albumin/Globulin Ratio 2.0 N 1-3 Total Bilirubin 0.30 mg/dL N 0.2-1.0 Alkaline Phosphatase 71 U/L N 34-104 Alt 18 U/L N 7-52 Ast 15 U/L N 13-39 Egfr Non- 123.2 >60 Egfr 149.0 >60 2 Laboratory test 06/18/2018 [facility] Ferritin 3.0 ng/mL Low 24-336 finding [address] [place] [address] [phone] Hemoglobin A1c (Glyco HGB) 7.8 % High 4.0-5.6 3 Lipid Profile 06/18/2018 [facility] Triglycerides 184 mg/dL 4 (Trig/Chol/HDL) [address] [place] [address] [phone] Cholesterol 117 mg/dL 5 HDL Cholesterol 31.3 mg/dL 6 LDL Cholesterol 49 mg/dL 7 Laboratory test 06/18/2018 [facility] Vitamin B12 408 pg/mL N 180-914 [address] [place] [address] [phone] Urine 05/01/2018 [facility] Ur Microalbumin < 15.0 [address] (mg/L) [place] [address] [phone] Urine Creatinine 67.70 mg/dL Urine Microalbumin/Creatinine TNP <31 10 Laboratory test 05/01/2018 [employer] House Hemoglobin A1c 8.4 High 5-7 finding CBC Auto Diff 04/25/2018 [facility] White Blood Count 10.9 High 3.5-10.[address] 10^3/[place] [address] [phone] Red Blood Count 4.67 10^6/uL N 4.00-5.40 Hemoglobin 12.4 g/dL Low 14.0-18.0 Hematocrit 38 % Low 42-52 Mean Corpuscular Volume 81 fL N 80-94 Mean Corpuscular Hemoglobin 27 pg N 27-31 Mean Corpuscular HGB Conc 33 g/dL N 31-36 Red Cell Distribution Width 15 % N 10.5-15 Platelet Count 382 10^3/uL N 150-450 Mean Platelet Volume 8.2 fL N 7.4-10.4 Abs Neutrophils 7.5 10^3/uL N 1.5-7.7 Abs Lymphocytes 2.5 10^3/uL N 1.0-4.8 Abs Monocytes 0.8 10^3/uL N 0-0.8 Abs Eosinophils 0.1 10^3/uL N 0-0.6 Abs Basophils 0 10^3/uL N 0-0.2 Abs Nucleated RBC 0 10^3/uL Granulocyte % 69.0 % Lymphocyte % 22.7 % Monocyte % 7.2 % Eosinophil % 0.7 % Basophil % 0.4 % Nucleated Red Blood Cells % 0 Laboratory test 04/25/2018 [facility] Lactic Acid 1.8 mmol/L N 0.5-2.0 [address] [place] [address] [phone] Inr/Protime 04/25/2018 [facility] Inr 1.01 N 0.77-1.[address] [place] [address] [phone] Laboratory test 04/25/2018 [facility] Partial 25.3 Low 26.0- 36.[address] [place] [address] PTT [phone] Troponin-I (TnI) 0.00 ng/mL <0.04 12 Comp Metabolic Panel 04/25/2018 [facility] Sodium 135 mmol/L N 135-[address] [place] [address] [phone] Potassium 4.1 mmol/L N 3.5-5.0 Chloride 99 mmol/L Low 101-111 Co2 Carbon Dioxide 22 mmol/L N 22-32 Anion Gap 14 mmol/L High 2-11 Glucose 212 mg/dL High 70-100 Blood Urea Nitrogen 24 mg/dL N 6-24 Creatinine 0.68 mg/dL N 0.67-1.17 BUN/Creatinine Ratio 35.3 High 8-20 Calcium 9.2 mg/dL N 8.6-10.3 Total Protein 6.6 g/dL N 6.4-8.9 Albumin 4.1 g/dL N 3.2-5.2 Globulin 2.5 g/dL N 2-4 Albumin/Globulin Ratio 1.6 N 1-3 Total Bilirubin 0.40 mg/dL N 0.2-1.0 Alkaline Phosphatase 59 U/L N 34-104 Alt 23 U/L N 7-52 Ast 14 U/L N 13-39 Egfr Non- 121.1 >60 Egfr 146.5 >60 13 Laboratory test 04/25/2018 [facility] Lipase 43 U/L N 11.0- 82.[address] [place] [address] [phone] Type & Screen 04/25/2018 [facility] Patient O Positive [address] [place] [address] [phone] Antibody Screen NEGATIVE Stool Occult 04/25/2018 [facility] Stool Occult SEE RESULT 14 Blood Diag [address] Blood, [place] [address] [phone] Laboratory test 04/16/2017 [facility] PSA Screening 0.293 ng/mL N 0-4.[address] [place] [address] [phone] Hepatitis C Antibody Nonreactive Nonreactive Laboratory test 04/16/2017 [employer] Hemoglobin A1c 7.5 High 5-7 finding Laboratory test 01/15/2017 [employer] [facility] House Hemoglobin A1c 7.6 High 5-7 finding Laboratory test 10/16/2016 [employer] House Hemoglobin A1c 9.0 High 5-7 finding CBC Auto Diff 09/15/2016 [facility] White Blood Count 9.6 N 3.5-10.[address] 10^3/[place] [address] [phone] Red Blood Count 5.40 10^6/uL N 4.0-5.4 Hemoglobin 14.7 g/dL N 14.0-18.0 Hematocrit 45 % N 42-52 Mean Corpuscular Volume 83 fL N 80-94 Mean Corpuscular Hemoglobin 27 pg N 27-31 Mean Corpuscular HGB Conc 33 g/dL N 31-36 Red Cell Distribution Width 14 % N 10.5-15 Platelet Count 307 10^3/uL N 150-450 Mean Platelet Volume 8 um3 N 7.4-10.4 Abs Neutrophils 4.9 10^3/uL N 1.5-7.7 Abs Lymphocytes 3.1 10^3/uL N 1.0-4.8 Abs Monocytes 0.9 10^3/uL High 0-0.8 Abs Eosinophils 0.6 10^3/uL N 0-0.6 Abs Basophils 0.1 10^3/uL N 0-0.2 Abs Nucleated RBC 0.01 10^3/uL N Granulocyte % 51.6 % N 38-83 Lymphocyte % 32.3 % N 25-47 Monocyte % 9.5 % High 1-9 Eosinophil % 5.8 % N 0-6 Basophil % 0.8 % N 0-2 Nucleated Red Blood Cells % 0.1 N Laboratory test 09/15/2016 [facility] D Dimer < 200 N Less [address] Quantitative ng/mL Than [address] [place] [address] [phone] Comp Metabolic 09/15/2016 [facility] Sodium 133 mmol/L N 133- [address] [place] [address] [phone] Chloride 102 mmol/L N 101-111 Co2 Carbon Dioxide 22 mmol/L N 22-32 Glucose 235 mg/dL High 70-100 Blood Urea Nitrogen 18 mg/dL N 6-24 Creatinine 0.81 mg/dL N 0.67-1.17 BUN/Creatinine Ratio 22.2 High 8-20 Calcium 8.7 mg/dL N 8.6-10.3 17 Total Protein 6.5 g/dL N 6.4-8.9 Albumin 3.7 g/dL N 3.2-5.2 Globulin 2.8 g/dL N 2-4 Albumin/Globulin Ratio 1.3 N 1-3 Total Bilirubin 0.30 mg/dL N 0.2-1.0 Alkaline Phosphatase 103 U/L N 34-104 Alt 23 U/L N 7-52 Egfr Non- 99.7 N >60 Egfr 128.2 N >60 18 Potassium 4.1 mmol/L N 3.5-5.0 Anion Gap 9 mmol/L N 2-11 Ast 20 U/L N 13-39 Laboratory test 09/15/2016 [facility] C Reactive 15.28 mg/L High < 5.00 [address] [place] [address] [phone] Blood Culture SEE RESULT BELOW 20 Body Fluid C&S 09/15/2016 [facility] Body Fluid SEE RESULT [address] [place] [address] Stain [phone] Laboratory test 09/15/2016 [facility] Hemoglobin A1c 9.1 % High Less [address] (Glyco HGB) than 6.0 [place] [address] [phone] Comp Metabolic 09/15/2016 [facility] Sodium 133 mmol/L N 133- [address] [place] [address] [phone] Potassium 3.9 mmol/L N 3.5-5.0 Chloride 104 mmol/L N 101-111 Co2 Carbon Dioxide 22 mmol/L N 22-32 Anion Gap 7 mmol/L N 2-11 Glucose 252 mg/dL High 70-100 Blood Urea Nitrogen 16 mg/dL N 6-24 Creatinine 0.78 mg/dL N 0.67-1.17 BUN/Creatinine Ratio 20.5 High 8-20 Calcium 8.8 mg/dL N 8.6-10.3 Total Protein 6.7 g/dL N 6.4-8.9 Albumin 3.9 g/dL N 3.2-5.2 Globulin 2.8 g/dL N 2-4 Albumin/Globulin Ratio 1.4 N 1-3 Total Bilirubin 0.40 mg/dL N 0.2-1.0 Alkaline Phosphatase 83 U/L N 34-104 Alt 23 U/L N 7-52 Ast 17 U/L N 13-39 Egfr Non- 104.1 N >60 Egfr 133.9 N >60 23 Urine Microalbumin 07/17/2016 [facility] Urine Creatinine 80.77 mg/dL N Random [address] [place] [address] [phone] Ur Microalbumin (mg/L) < 15.0 mg/L N Urine Microalbumin/Creatinine TNP ug/mg N <31 24 Laboratory test 07/17/2016 [employer] [facility] Hemoglobin A1c 9.1 High 5-7 finding Laboratory test 04/17/2016 [employer] [facility] House Hemoglobin A1c 10.4 High 5-7 finding Laboratory test 01/17/2016 [facility] Hemoglobin A1c 9.3 % High Less than [address] (Glyco HGB) 6.0 [place] [address] [phone] Comp Metabolic 09/08/2015 [facility] Sodium 135 N 133-[address] mmol/[place] [address] [phone] Potassium 4.0 mmol/L N 3.5-5.0 Chloride 103 mmol/L N 101-111 Co2 Carbon Dioxide 25 mmol/L N 22-32 Anion Gap 7 mmol/L N 2-11 Glucose 194 mg/dL High 70-100 Blood Urea Nitrogen 16 mg/dL N 6-24 Creatinine 0.66 mg/dL Low 0.67-1.17 BUN/Creatinine Ratio 24.2 High 8-20 Calcium 8.7 mg/dL N 8.6-10.3 Total Protein 6.1 g/dL Low 6.4-8.9 Albumin 3.9 g/dL N 3.2-5.2 Globulin 2.2 g/dL N 2-4 Albumin/Globulin Ratio 1.8 N 1-3 Total Bilirubin 0.40 mg/dL N 0.2-1.0 Alkaline Phosphatase 76 U/L N 34-104 Alt 33 U/L N 7-52 Ast 21 U/L N 13-39 Egfr Non- 126.7 N >60 Egfr 163.0 N >60 26 Lipid Profile 09/08/2015 [facility] Triglycerides 214 mg/dL N 27 (Trig/Chol/HDL) [address] [place] [address] [phone] Cholesterol 150 mg/dL N 28 HDL Cholesterol 34.9 mg/dL N 29 LDL Cholesterol 72 mg/dL N 30 1 Unable to calculate due to low microalbumin 2 Because ethnic data is not always readily available, this report includes an eGFR for both -Americans and non- Americans. The National Kidney Disease Education Program (NKDEP) does not endorse the use of the MDRD equation for patients that are not between the ages of 18 and 70, are , have extremes of body size, muscle mass, or nutritional status, or are non- or non-. According to the National Kidney Foundation, irrespective of diagnosis, the stage of the disease is based on the level of kidney function: Stage Description GFR(mL/min/1.73 m(2)) 1 Kidney damage with normal or decreased GFR 90 2 Kidney damage with mild decrease in GFR 60-89 3 Moderate decrease in GFR 30-59 4 Severe decrease in GFR 15-29 5 Kidney failure <15 (or dialysis) 3 Therapeutic target for the treatment of diabetes mellitus patients is <7% HBA1C, and in selective patients <6.0%. Please refer to [place] [employer] diabetic care guidelines for further information. 4 Desirable: <150 Borderline High: 150-199 High: 200-499 Very High: >500 5 Desirable: <200 Borderline High: 200-239 High: >239 6 Low: <40 Desirable: 40-60 High: >60 7 Desirable: <100 Near Optimal: 100-129 Borderline High: 130-159 High: 160-189 Very High: >189 8 Normal Range 180 to 914 Indeterminate Range 145 to 180 Deficient Range <145 9 [id number] Unable to calculate due to low microalbumin 11 [facility] Severe Sepsis and Septic Shock Management Bundle Measure requires all lactic acids initially measuring >2.0 mmol/L be repeated. 12 Troponin-I testing on Plasma Separator Tubes (PST) has a known false positive rate of 0.20-0.40%. All positive troponins reflex immediate secondary confirmatory testing. 13 Because ethnic data is not always readily available, this report includes an eGFR for both -Americans and non- Americans. The National Kidney Disease Education Program (NKDEP) does not endorse the use of the MDRD equation for patients that are not between the ages of 18 and 70, are , have extremes of body size, muscle mass, or nutritional status, or are non- or non-. According to the National Kidney Foundation, irrespective of diagnosis, the stage of the disease is based on the level of kidney function: Stage Description GFR(mL/min/1.73 m(2)) 1 Kidney damage with normal or decreased GFR 90 2 Kidney damage with mild decrease in GFR 60-89 3 Moderate decrease in GFR 30-59 4 Severe decrease in GFR 15-29 5 Kidney failure <15 (or dialysis) 14 SEE RESULT BELOW Name: ROOSEVELTZAC : [address]: Christa Ray MD Acct: [id number] Unit: [id number] AGE: 57 Location: ED Re04/25/18 SEX: M Status: REG ER SPEC: [id number] TIM: 04/25/18-[address]: Dallas Ray MD REQ: [id number] RECD: 04/25/18 STATUS: COMP HOLDEN DR: Colton Garcia CREATIVE ARTS THERAPIST _ SOURCE: STOOL SPDESC: ORDERED: Occult Bl, Diag Procedure Result Reported Site Stool Occult Blood (1) Final 04/25/18- 1527 ML Stool Occult Blood Positive Collection Date (1) 04/25/18 * ML - Main Lab . END OF REPORT DEPARTMENT OF PATHOLOGY, [address] [place] [address] Williams Fuentes M.D. Director [facility] # [id number] 15 Serum levels of PSA measured using the Kylie Car DXI Hybritech immunoassay should not be interpreted as absolute evidence of the presence or absence of disease. The PSA value should be used in conjunction with other pertinent clinical diagnostic procedures. A PSA value in the range of 0.1 to 0.6 ng/ml is indeterminate if being used as an indicator of recurrent or residual disease. The values obtained with different assay methods or kits cannot be used interchangeably. 16 Please note: The following may produce a false positive D Dimer test: - Rheumatoid factor greater than 60 IU/ml - Plasma hemoglobin greater than 0.05 gm/dl - Bilirubin greater than 50 mg/dl - Lipids greater than 1000 mg/dl - FDP greater than 20 ug/ml 17 Specimen Lipemic. Result may not be valid. 18 Because ethnic data is not always readily available, this report includes an eGFR for both -Americans and non- Americans. The National Kidney Disease Education Program (NKDEP) does not endorse the use of the MDRD equation for patients that are not between the ages of 18 and 70, are , have extremes of body size, muscle mass, or nutritional status, or are non- or non-. According to the National Kidney Foundation, irrespective of diagnosis, the stage of the disease is based on the level of kidney function: Stage Description GFR(mL/min/1.73 m(2)) 1 Kidney damage with normal or decreased GFR 90 2 Kidney damage with mild decrease in GFR 60-89 3 Moderate decrease in GFR 30-59 4 Severe decrease in GFR 15-29 5 Kidney failure <15 (or dialysis) 19 Acute inflammation: >10.00 20 SEE RESULT BELOW Name: ZAC MCKEON : [address]: Huseyin Rand MD Acct: [id number] Unit: [id number] AGE: 55 Location: [place] [address] Re09/15/16 Dis: 09/17/16 SEX: M Status: DIS IN SPEC: [id number] TIM: 09/15/[address] [facility] [address]: Jameel Smith MD REQ: [id number] RECD: 09/15/16 STATUS: BRIAN GASCA DR: [facility] Colton Garcia CREATIVE ARTS THERAPIST _ SOURCE: BLOOD,VENO SPDESC: ORDERED: Blood Cult COMMENTS: Patient is On Antibiotics? YES Comment: on Keflex Reason for Exam: cellulitis PATIENT STILL IN ED @ 2214 Procedure Result Reported Site Aerobic Culture Bottle Final 09/20/162233 ML No Growth Day 5 Anaerobic Culture Bottle Final 09/20/162233 ML No Growth Day 5 * ML - MAIN LAB ([facility]) . END OF REPORT * ML=Testing performed at Main Lab DEPARTMENT OF PATHOLOGY, [address] [place] [address] Williams Fuentes M.D. Director [facility] # [id number] 21 SEE RESULT BELOW Name: ZAC MCKEON : [address]: Lico Smith MD Acct: [id number] Unit: [id number] AGE: 55 Location: [facility] Re09/15/16 SEX: M Status: REG REF SPEC: [id number] TIM: 09/15/[address]: Jameel Smith MD REQ: [id number] RECD: 09/15/16 STATUS: COMP _ SOURCE: BODY FLUID SPDESC: ORDERED: GENESIS Lema/JUAN COMMENTS: RT elbow abscess, spont drain [id number] Procedure Result Reported Site Body Fluid Gram Stain Final 09/16/16- 1153 ML No Neutrophils Observed No Organisms Seen Preparation By Direct Smear Insufficient specimen material observed on gram stain. Body Fluid Culture Final 09/17/16- 0914 ML Organism 1 STAPHYLOCOCCUS AUREUS Quantity 1+ 1. STAPHYLOCOCCUS AUREUS M.I.C. RX --------- ------ Penicillin >=0.5 R Clindamycin <=0.25 S Erythromycin >=8 R Gentamicin <=0.5 S Linezolid 2 S Nitrofurantoin <=16 S Oxacillin 0.5 S * Quinupristin/Dalfopristin 0.5 S Rifampin <=0.5 S Tetracycline <=1 S CONTINUED ON NEXT PAGE * ML=Testing performed at Main Lab DEPARTMENT OF PATHOLOGY, [address] [place] [address] Williams Fuentes M.D. Director [facility] # [id number] Patient: ZAC MCKEON [id number] (Continued) Specimen: [id number] Collected: 09/15/16 Received: 09/15/16-1819 (Continued) Procedure Result Reported Site Body Fluid Culture Final (continued) 09/17/16913 1. STAPHYLOCOCCUS AUREUS (continued) M.I.C. RX --------- ------ Doxycycline - Deduced S * Minocycline - Deduced S Trimethoprim/Sulfamethoxazole <=10 S Vancomycin 1 S Imipenem-Deduced S * Ampicillin/Sulbactam-Deduced S Cefazolin-Deduced S * These antibiotics are not available in the [facility] Formulary Contact the Microbiology Department for any additional antibiotic reporting. * ML - MAIN LAB ([facility]) . END OF REPORT * ML=Testing performed at Main Lab DEPARTMENT OF PATHOLOGY, [address] [place] [address] Williams Fuentes M.D. Director [facility] # [id number] 22 Therapeutic target for the treatment of diabetes Mellitus patients is <7% HBA1C, and in selective patients <6.0%.Please refer to [place] [employer] Diabetic care guidelines for further information. 23 Because ethnic data is not always readily available, this report includes an eGFR for both -Americans and non- Americans. The National Kidney Disease Education Program (NKDEP) does not endorse the use of the MDRD equation for patients that are not between the ages of 18 and 70, are , have extremes of body size, muscle mass, or nutritional status, or are non- or non-. According to the National Kidney Foundation, irrespective of diagnosis, the stage of the disease is based on the level of kidney function: Stage Description GFR(mL/min/1.73 m(2)) 1 Kidney damage with normal or decreased GFR 90 2 Kidney damage with mild decrease in GFR 60-89 3 Moderate decrease in GFR 30-59 4 Severe decrease in GFR 15-29 5 Kidney failure <15 (or dialysis) 24 Unable to calculate due to low microalbumin 25 Therapeutic target for the treatment of diabetes Mellitus patients is <7% HBA1C, and in selective patients <6.0%.Please refer to [place] [employer] Diabetic care guidelines for further information. 26 Because ethnic data is not always readily available, this report includes an eGFR for both -Americans and non- Americans. The National Kidney Disease Education Program (NKDEP) does not endorse the use of the MDRD equation for patients that are not between the ages of 18 and 70, are , have extremes of body size, muscle mass, or nutritional status, or are non- or non-. According to the National Kidney Foundation, irrespective of diagnosis, the stage of the disease is based on the level of kidney function: Stage Description GFR(mL/min/1.73 m(2)) 1 Kidney damage with normal or decreased GFR 90 2 Kidney damage with mild decrease in GFR 60-89 3 Moderate decrease in GFR 30-59 4 Severe decrease in GFR 15-29 5 Kidney failure <15 (or dialysis) 27 Desirable <150 Borderline high 150-199 High 200-499 Very High >500 28 Desirable <200 Borderline high 200-239 High >239 29 Low <40 Desirable: 40-60 High: >60 30 Desirable: <100 mg/dL Near Optimal: 100-129 mg/dL Borderline High: 130-159 mg/dL High: 160-189 mg/dL Very High: >189 mg/dL Procedures Date Code Description Status 05/01/2018 [id number] Colonoscopy Completed 04/26/2018 27583 Endoscopy Upper GI Biopsy Completed Encounters Type Date Location Provider Dx Diagnosis Office Visit 06/17/2018 [facility] Gastroenterology Dav Malave D50.9 Iron deficiency 2:45p [place] anemia, unspecified K26.0 Acute duodenal ulcer with hemorrhage E11.65 Type 2 diabetes mellitus with hyperglycemia I10 Essential (primary) hypertension Office Visit 05/01/2018 9:20a [facility] Internal Coltonnic Garcia, K26.3 Acute duodenal Medicine CREATIVE ARTS THERAPIST ulcer without hemorrhage or perforation E11.65 Type 2 diabetes mellitus with hyperglycemia I10 Essential (primary) hypertension Z13.220 Encounter for screening for lipoid disorders D50.9 Iron deficiency anemia, unspecified Office Visit 04/27/2018 [facility] Gastroenterology Dav Malave K26.0 Acute duodenal 7:00a MD [place] ulcer with hemorrhage Office Visit 04/27/2018 [facility] Stew K26.0 Acute duodenal 12:55p Asskomal,lexie Hospitalists POWER Salcido ulcer with hemorrhage E11.9 Type 2 diabetes mellitus without complications E66.01 Morbid (severe) obesity due to excess calories Z98.84 Bariatric surgery status Office Visit 04/26/2018 [facility] Gastroenterology Dav Malave K26.7 Chronic duodenal 7:00a MD [place] ulcer without hemorrhage or perforation D62 Acute posthemorrhagic anemia K21.0 Gastro-esophageal reflux disease with esophagitis Z98.84 Bariatric surgery status Office Visit 04/26/2018 12:55p [facility] Stew K26.0 Acute duodenal Assoc,POWER Jain ulcer with Hospitalists hemorrhage E11.9 Type 2 diabetes mellitus without complications F32.9 Major depressive disorder, single episode, unspecified Z98.84 Bariatric surgery status Office Visit 04/25/2018 12:55p [facility] Sarkis Acuña K26.0 Acute duodenal Assoclexie MD ulcer with Hospitalists hemorrhage E11.9 Type 2 diabetes mellitus without complications Z98.84 Bariatric surgery status Office Visit 04/16/2017 9:00a [facility] Internal Coltonnic Garcia, E11.65 Type 2 diabetes Medicine CREATIVE ARTS THERAPIST mellitus with hyperglycemia I10 Essential (primary) hypertension Z12.5 Encounter for screening for malignant neoplasm of prostate Z11.59 Encounter for screening for other viral diseases Office Visit 01/15/2017 9:00a [facility] Internal Coltonnic Garcia, E11.65 Type 2 diabetes Medicine CREATIVE ARTS THERAPIST mellitus with hyperglycemia I10 Essential (primary) hypertension Office Visit 10/23/2016 11:40a [facility] Dermatology Ivan Wakefield, 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 D18.01 Hemangioma of skin and subcutaneous tissue L71.8 Other rosacea D23.71 Ot benign neoplasm skin/ right lower limb, including hip 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 right upper limb Hospitalists E11.65 Type 2 diabetes mellitus with hyperglycemia Z79.4 intermediate designer (current) use of insulin Office Visit 09/16/2016 11:23a [facility] Kirstin Mcghee, M25.521 Pain in right Of C.M.A. M.D. elbow S40.861A Insect bite (nonvenomous) of right upper arm, init encntr Office Visit 09/16/2016 [place] Lamin Myo, E11.65 Type 2 diabetes 2:07p Asskomal,lexie N.P. mellitus with Hospitalists hyperglycemia L03.113 Cellulitis of right upper limb Z79.4 intermediate designer (current) use of insulin Office Visit 09/15/2016 [place] Lamin Hu L03.113 Cellulitis of 2:06p Asslexie sauceda M.D.,FACP right upper limb Hospitalists E11.65 Type 2 diabetes mellitus with hyperglycemia Z79.4 intermediate designer (current) use of insulin Office Visit 09/15/2016 [facility] Eh Hu L03.113 Cellulitis of right 4:40p Hailey Smith M.D.,FACP upper limb [address] Office Visit 07/17/2016 [facility] Internal Colton Garcia, CREATIVE ARTS THERAPIST E11.9 Type 2 diabetes 10:20a Medicine mellitus without complications Z23 Encounter for immunization Office Visit 04/17/2016 10:00a [facility] Internal Colton Garcia, I10 Essential ( primary) Medicine CREATIVE ARTS THERAPIST hypertension E11.9 Type 2 diabetes mellitus without complications R20.2 Paresthesia of skin Z85.820 Personal history of malignant melanoma of skin J01.90 Acute sinusitis, unspecified Office Visit 06/14/2015 9:40a [facility] Internal Colton Garcia, I10 Essential ( primary) Medicine CREATIVE ARTS THERAPIST hypertension Z13.220 Encounter for screening for lipoid disorders Office Visit 05/10/2015 3:00p [facility] Internal Colton Garcia, R03.0 Elevated Medicine CREATIVE ARTS THERAPIST blood-pressure reading, w/o diagnosis of htn M25.572 Pain in left ankle and joints of left foot Plan of Treatment Future Appointment(s):11/04/2018 10:20 am - Colton Garcia NP at [facility] Internal Ubgbzhql21/06/2019 2:30 pm - Dav Claire MD at [facility] Ajwimnwkcfqgaafr36/08/ 2019 - Colton Garcia NPD50.9 Iron deficiency anemia, dgwutmsquvvA92.65 Type 2 diabetes mellitus with hyperglycemiaComments:Your A1c is 6.9% down from 7.8%. Great job!! Continue limiting carbohydrates in your diet and remaining active.Follow up:3 months, 20 minRecommendations:See your analysis engineer every year. It is OK to go every 2 years if he finds no retinal damage from diabetes. Ask your analysis engineer to communicate his findings to us. See a social welfare administrator every 6 months if you have numbness in your feet or a history of foot ulcers.I10 Essential (primary) hypertensionComments:HYPERTENSION:Well controlled on current regimen. Continue present management. Goals 08/05/2018 - Colton Garcia NPE11.65 Type 2 diabetes mellitus with hyperglycemiaGoal Hemoglobin A1c is less than 7.0%. Goal Blood pressure is less than 130/85.
--- NOTE | 2018-08-22 20:05 | ED ---
Lower Extremity - HPI Summary HPI Summary: Pt is a 57 y/o male who presents to the ED c/o hip pain. 2 days ago he suddenly started to have right hip pain that extends around to his buttocks. Pain is currently rated a 9/10 in severity and radiates down his RLE. He is unable to bear weight on his leg, and pain is made worse with standing of movement. Pt reports pain even with light touch. also notes the skin on his bilateral flanks appear red and mottled. Pt denies any fever, chills, dysuria, testicular pain, rectal pain, or numbness. Pt denies any recent trauma. He has been using ice for his symptoms. He has a hx of radiculopathy at L3-L and gets epidural steroid injections. Pt denies any recent medication changes. - History of Current Complaint Chief Complaint: EDHipPelvisInjury Stated Complaint: RIGHT HIP/BACK PAIN PER PT Time Seen by Provider: 08/22/18 20:00 Hx Obtained From: Patient Mechanism Of Injury: Other - No injury Onset of Pain: Days - 2 Severity Currently: Severe Pain Intensity: 9 Pain Scale Used: 0-10 Numeric Timing: Constant Location: Is Discrete @ - right hip Aggravating Factor(s): Standing, Movement Able to Bear Weight: No - Allergies/Home Medications Allergies/Adverse Reactions: Allergies Allergy/AdvReac Type Severity Reaction Status Date / Time No Known Allergies Allergy Verified 08/22/18 18:48 PMH/Surg Hx/FS Hx/Imm Hx Endocrine/Hematology History: Reports: Hx Diabetes Cardiovascular History: Reports: Hx Hypertension Denies: Hx Pacemaker/ICD GI History: Reports: Hx Gastroesophageal Reflux Disease History: Denies: Hx Dialysis, Hx Renal Disease Musculoskeletal History: Reports: Hx Arthritis, Hx Back Problems - L3-L4 radiculopathy Sensory History: Reports: Hx Contacts or Glasses Denies: Hx Hearing Aid Opthamlomology History: Reports: Hx Contacts or Glasses Neurological History: Reports: Other Neuro Impairments/Disorders - PAIN CLINIC PATIENT Psychiatric History: Reports: Hx Anxiety, Hx Attention Deficit Hyperactivity Disorder, Hx Depression Denies: Hx Panic Disorder - Cancer History Cancer Type, Location and Year: right shoulder melanoma - Surgical History Surgery Procedure, Year, and Place: left wrist, right shoulder melanoma removed. Gastric by-pass 05/2003 Carpal tunnel 05/1994. RADIOFREQUENCY ABLATION THERAPY LSP 2007 - Immunization History Date of Tetanus Vaccine: unknown Date of Influenza Vaccine: NO Infectious Disease History: No Infectious Disease History: Denies: Traveled Outside the [place] in Last 30 Days - Family History Known Family History: Negative: Diabetes - Social History Alcohol Use: None Hx Substance Use: No Substance Use Type: Reports: None Substance Use Comment - Amount & Last Used: fentanyl patch and hydrocodone Hx Tobacco Use: Yes Smoking Status (MU): Former Smoker Type: Cigarettes, Cigars Review of Systems Negative: Fever, Chills Negative: dysuria, pain - testicular, rectal Positive: Arthralgia - right hip Positive: Other - bilateral flanks red and mottled Negative: Numbness All Other Systems Reviewed And Are Negative: Yes Physical Exam - Summary Physical Exam Summary: Appearance: well appearing, moderate-severe pain distress Skin: warm, dry, reflects adequate perfusion, bennie erythema of bilateral flanks , minor mottling of bilateral anterior thighs Head/face: normal Eyes: EOMI, PAIGE ENT: mucous membranes moist Neck: supple, non-tender Respiratory: CTA, breath sounds present, mildly tachypneic Cardiovascular: RRR, pulses symmetrical Abdomen: non-tender, soft, epigastric surgical scar Bowel Sounds: present Musculoskeletal: strength/ROM intact, tenderness to light touch of L1-L2 dermatomes on right flank, hip, and inguinal area Neuro: normal, sensory motor intact, A&Ox3 Triage Information Reviewed: Yes Vital Signs On Initial Exam: Initial Vitals Temp Pulse Resp BP Pulse Ox 97.4 F 92 16 146/84 98 08/22/18 18:43 08/22/18 18:43 08/22/18 18:43 08/22/18 18:43 08/22/18 18:43 Vital Signs Reviewed: Yes Diagnostics - Vital Signs Vital Signs Temp Pulse Resp BP Pulse Ox 08/22/18 18:43 97.4 F 92 16 146/84 98 - Laboratory Result Diagrams: 08/22/18 20:00 08/22/18 20:00 Lab Statement: Any lab studies that have been ordered have been reviewed, and results considered in the medical decision making process. - Radiology Hip/Pelvis XR Radiology Interpretation Completed By: ED Physician Summary of Radiographic Findings: No acute fracture. No soft tissue air. Pending official radiology report. - CT Pelvis CT CT Interpretation Completed By: Radiologist Summary of CT Findings: No acute findings. Pending official radiology report. Lumbar Spine CT CT Interpretation Completed By: Radiologist Summary of CT Findings: No acute findings. Mild degenerative change. ED physician reviewed radiology report. Lower Extremity Course/Dx - Course Course Of Treatment: Nurse's notes reviewed. A showed a history of lumbar radiculopathy in the L3/L4 region. Today presents with higher discomfort in distribution of L1 or L2. Imaging is negative and there is no rise in inflammatory markers. He is treated with Lidoderm and pain control with improvement. 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 primary, painter aircraft - Diagnoses Differential Diagnosis/HQI/PQRI: Positive: Other - Radiculopathy, necrotizing fasciitis, kidney stone, osteomyelitis Provider Diagnoses: Lumbar radiculopathy Discharge - Sign-Out/Discharge Documenting (check all that apply): Patient Departure - Discharge Patient Received Moderate/Deep Sedation with Procedure: No - Discharge Plan Condition: Improved Disposition: HOME Prescriptions: Lidocaine PATCH 5%* [Lidoderm 5% Patch*] 1 patch TRANSDERM DAILY #1 packet methylPREDNISolone [Medrol Dosepak 4 MG*] 4 mg PO .SEE SAMEER INSTRUCTION #1 packet Patient Education Materials: Lumbar Radiculopathy (ED) Referrals: Rachelle Vasquez MD [Medical Doctor] - Colton Garcia NP [Primary Care Provider] - Additional Instructions: Call your pain management doctor first thing in the morning to schedule prompt follow-up. Return with uncontrolled pain, fever, new symptoms, worse or other concerns. - Billing Disposition and Condition Condition: IMPROVED Disposition: Home - Attestation Statements Document Initiated by Scribe: Yes Documenting Scribe: Dana Marroquin Provider For Whom Cristhian is Documenting (Include Credential): Mikey Pulido MD Scribe Attestation: Dana Lawrence, scribed for Mikey Pulido MD on 08/22/18 at 2235. Scribe Documentation Reviewed: Yes Provider Attestation: The documentation as recorded by the Dana herrera accurately reflects the service I personally performed and the decisions made by me, Mikey Pulido MD Status of Scribe Document: Viewed
[2018-08-22] MEDS ORDERED: Lidocaine PATCH 5%* 1 PATCH TRANSDERM ONE (20:15)
[2018-08-22] MEDS ORDERED: Ketorolac INJ* 30 MG/ML 1 ML VIAL IV PUSH ONE (20:15)
[2018-08-22] MEDS ORDERED: Morphine 4 MG/ML VIAL (1 ml) 4 MG/ML VIAL IV ONE (20:15)
[2018-08-22] MEDS ORDERED: NS 0.9% 1000 ML** 1,000 ML IV ONE (20:15)
[2018-08-22 20:26] LABS: Hematocrit 44 % (36-46); Hemoglobin 13.8 g/dL (14.0-18.0); Mean Corpuscular HGB Conc 31 g/dL (31-36); Mean Corpuscular Hemoglobin 22 pg (27-31); Mean Corpuscular Volume 70 fL (80-94); Mean Platelet Volume 8.5 fL (7.4-10.4); Platelet Count 364 10^3/uL (150-450); Red Blood Count 6.29 10^6 /uL (4.18-5.48); Red Cell Distribution Width 27 % (10.5-15); White Blood Count 9.2 10^3/uL (3.5-10.8)
[2018-08-22 20:37] LABS: Albumin 4.5 g/dL (3.2-5.2); Albumin/Globulin Ratio 1.6 (1-3); BUN/Creatinine Ratio 22.6 (8-20); C Reactive Protein 10.22 mg/L (<8.01); Calcium 9.2 mg/dL (8.6-10.3); EGFR Non-African American 134.7 (>60); Globulin 2.9 g/dL (2-4); Potassium 4.3 mmol/L (3.5-5.0); Total Bilirubin 0.3 mg/dL (0.2-1.0); Total Protein 7.4 g/dL (6.4-8.9)
[2018-08-22 20:46] LABS: Microcytosis 1+
[2018-08-22 20:48] LABS: ABS Basophils 0.1 10^3/ul (0-0.2); ABS Eosinophils 0.3 10^3/ul (0-0.6); ABS Lymphocytes 1.8 10^3/ul (1.0-4.8); ABS Monocytes 0.8 10^3/ul (0-0.8); ABS Neutrophils 6.2 10^3/ul (1.5-7.7); ABS Nucleated RBC 0 10^3/ul; Eosinophil % 3.1 %; Nucleated Red Blood Cells % 0.1
[2018-08-22] MEDS ORDERED: Lidocaine Patch REMOVE* 1 NOTE MISC SCH (21:00)
[2018-08-22] MEDS ORDERED: Dexamethasone IV* 4 MG/ML 1 ML (4 MG) IV SLOW PU ONE (21:45)
[2018-08-22] MEDS ORDERED: Gabapentin CAP(*) 300 MG PO ONE (21:45)
[2018-08-22 22:27] VITALS: BP 124/52
== END 2018-08-22 22:15 | disposition home or self-care (01) ==
LOC: ED 18:36
DX: M54.16 Radiculopathy, lumbar region (principal); I10 Essential (primary) hypertension; E11.9 Type 2 diabetes mellitus without complications; K21.9 Gastro-esophageal reflux disease without esophagitis; M19.90 Unspecified osteoarthritis, unspecified site; Z87.891 Personal history of nicotine dependence
CPT/HCPCS: 36415; 72131; 72192; 80053; 82550; 85025; 85060; 86140; 87040; 96361; 96374; 96375; 99284; A9270-GY; J1100; J1885; J2270

== ENCOUNTER 2019-06-12 12:59 | Inpatient (IN) | payer BC ==
[2019-06-12 14:37] LABS: ABS Basophils 0.1 10^3/ul (0-0.2); ABS Eosinophils 0.5 10^3/ul (0-0.6); ABS Lymphocytes 3.1 10^3/ul (1.0-4.8); ABS Neutrophils 6.4 10^3/ul (1.5-7.7); Eosinophil % 4.4 %; Hematocrit 40 % (42-52); Hemoglobin 13.3 g/dL (14.0-18.0); Lymphocyte % 28.3 %; Mean Corpuscular HGB Conc 33 g/dL (31-36); Mean Corpuscular Hemoglobin 29 pg (27-31); Mean Corpuscular Volume 86 fL (80-94); Mean Platelet Volume 8.5 fL (7.4-10.4); Platelet Count 379 10^3/uL (150-450); Red Blood Count 4.64 10^6 /uL (4.18-5.48); Red Cell Distribution Width 14 % (10-15); White Blood Count 11.1 10^3/uL (3.5-10.8)
[2019-06-12 14:49] LABS: Activated Partial Thrombo Time 31.4 seconds (26.0-38.0); INR 1.05 (0.82-1.09)
[2019-06-12 15:03] LABS: Albumin 4.6 g/dL (3.2-5.2); BUN/Creatinine Ratio 61.5 (8-20); Calcium 9.7 mg/dL (8.6-10.3); Globulin 2.3 g/dL (2-4); Potassium 4.7 mmol/L (3.5-5.0); Total Bilirubin 0.7 mg/dL (0.2-1.0); Total Protein 6.9 g/dL (6.4-8.9)
--- NOTE | 2019-06-12 15:03 | ED ---
GI/ HPI - HPI Summary HPI Summary: 58 year old M arriving via private car with complains of an episode of nausea/vomiting tarry and grainy emesis, dizziness, [place] [address]/12/2019, and tarry stools and abomidnal pain for several days. Last bowel movement 0930 this morning. Hx bleeding stomach ulcer in March 2018 for which he received blood transfusions. Sees Dr. Claire GI. Patient states he developed nausea and projectile vomited tarry and grainy emesis x1 299. He reports dizziness and light headedness starting at 0300 06/12/2019. Patient reports tarry stools and abdominal pain described as irritation for several days. He denies bright red stools. Called Dr. Claire's office and was referred to the ED. Patient denies fever, chills, erythema of eyes, sore throat , chest pain, shortness of breath, cough, decreased appetite, dysuria, hematuria , myalgia, edema, rash. Symptoms rated 0/10 in severity. Symptoms aggravated by nothing. Symptoms alleviated by nothing. Medications reviewed. Not on anticoagulants. Took all his morning medications. Allergies reviewed. Denies ETOH. Hx gastric bypass. - History of Current Complaint Chief Complaint: EDGIBleed Time Seen by Provider: 06/12/19 14:56 Stated Complaint: BLEEDING ULCER PER PT Hx Obtained From: Patient Onset/Duration: Started Hours Ago - 12, Started Days Ago, Still Present Timing: Lasting Hours - 12, Lasting Days Current Severity: None Pain Intensity: 0 Pain Characteristics: Other: - irritation Aggravating Factor(s): Nothing Alleviating Factor(s): Nothing - Additional Pertinent History Primary Care Physician: JAYDON - Allergy/Home Medications Allergies/Adverse Reactions: Allergies Allergy/AdvReac Type Severity Reaction Status Date / Time morphine AdvReac Fatigue Verified 06/12/19 13:15 Home Medications: Home Medications Magnesium [Magnesium Elemental] 30 mg PO BID 06/12/19 [History Confirmed ] PMH/Surg Hx/FS Hx/Imm Hx Endocrine/Hematology History: Reports: Hx Diabetes Cardiovascular History: Reports: Hx Hypertension Denies: Hx Pacemaker/ICD GI History: Reports: Hx Gastroesophageal Reflux Disease, Hx Ulcer History: Denies: Hx Dialysis, Hx Renal Disease Musculoskeletal History: Reports: Hx Arthritis, Hx Back Problems - L3-L4 radiculopathy Sensory History: Reports: Hx Contacts or Glasses Denies: Hx Hearing Aid Opthamlomology History: Reports: Hx Contacts or Glasses Neurological History: Reports: Other Neuro Impairments/Disorders - PAIN CLINIC PATIENT Psychiatric History: Reports: Hx Anxiety, Hx Attention Deficit Hyperactivity Disorder, Hx Depression Denies: Hx Panic Disorder - Cancer History Cancer Type, Location and Year: right shoulder melanoma - Surgical History Surgery Procedure, Year, and Place: left wrist, right shoulder melanoma removed. Gastric by-pass 05/2003 Carpal tunnel 05/1994. RADIOFREQUENCY ABLATION THERAPY LSP 2006 - Immunization History Date of Tetanus Vaccine: unknown Date of Influenza Vaccine: NO Infectious Disease History: No Infectious Disease History: Denies: Traveled Outside the [place] in Last 30 Days - Family History Known Family History: Negative: Diabetes - Social History Alcohol Use: None Hx Substance Use: No Substance Use Type: Reports: None Substance Use Comment - Amount & Last Used: fentanyl patch and hydrocodone Hx Tobacco Use: Yes Smoking Status (MU): Former Smoker Type: Cigarettes, Cigars Review of Systems Negative: Fever, Chills Negative: Erythema Negative: Sore Throat Negative: Chest Pain Negative: Shortness Of Breath, Cough Gastrointestinal: Negative - decreased appetite Positive: Abdominal Pain, Vomiting, Nausea, Other - tarry stools Negative: dysuria, hematuria Negative: Myalgia, Edema Negative: Rash Neurological/Mental Status: Other - Dizziness, light headedness All Other Systems Reviewed And Are Negative: Yes Physical Exam - Summary Physical Exam Summary: Constitutional: Well-developed, Well-nourished, Alert. (-) Distressed Skin: Warm, Dry HENT: Normocephalic; Atraumatic Eyes: Conjunctiva normal Neck: Musculoskeletal ROM normal neck. (-) JVD, (-) Stridor, (-) Tracheal deviation Cardio: Rhythm regular, rate normal, Heart sounds normal; Intact distal pulses; The pedal pulses are 2+ and symmetric. Radial pulses are 2+ and symmetric. (-) Murmur; strong peripheral pulses Pulmonary/Chest wall: Effort normal. (-) Respiratory distress, (-) Wheezes, (-) Rales Abd: Soft, epigastric tenderness, (-) Distension, (-) Guarding, (-) Rebound Rectal exam chaperoned by female RN: significant melena during digital rectal exam Musculoskeletal: (-) Edema Lymph: (-) Cervical adenopathy Neuro: Alert, Oriented x3 Psych: Mood and affect Normal Triage Information Reviewed: Yes Vital Signs On Initial Exam: Initial Vitals Temp Pulse Resp BP Pulse Ox 96.9 F 104 18 143/119 97 06/12/19 13:11 06/12/19 13:11 06/12/19 13:11 06/12/19 13:11 06/12/19 13:11 Vital Signs Reviewed: Yes Procedures - Sedation Patient Received Moderate/Deep Sedation with Procedure: No Diagnostics - Vital Signs Vital Signs Temp Pulse Resp BP Pulse Ox 06/12/19 13:11 96.9 F 104 18 143/119 97 - Laboratory Lab Results: Lab Results 06/12/19 06/12/19 06/12/19 Range/Units 14:22 14:22 14:22 WBC 11.1 H (3.5-10.8) 10^3/uL RBC 4.64 (4.18-5.48) 10^6 /uL Hgb 13.3 L (14.0-18.0) g/dL Hct 40 L (42-52) % MCV 86 (80-94) fL MCH 29 (27-31) pg MCHC 33 (31-36) g/dL RDW 14 (10-15) % Plt Count 379 (150-450) 10^3/uL MPV 8.5 (7.4-10.4) fL Neut % (Auto) 57.7 % Lymph % (Auto) 28.3 % [place] % (Auto) 9.1 % Eos % (Auto) 4.4 % Baso % (Auto) 0.5 % Absolute Neuts (auto) 6.4 (1.5-7.7) 10^3/ul Absolute Lymphs (auto) 3.1 (1.0-4.8) 10^3/ul Absolute Monos (auto) 1.0 H (0-0.8) 10^3/ul Absolute Eos (auto) 0.5 (0-0.6) 10^3/ul Absolute Basos (auto) 0.1 (0-0.2) 10^3/ul Absolute Nucleated RBC 0.0 10^3/ul Nucleated RBC % 0.0 INR (Anticoag Therapy) 1.05 (0.82-1.09) APTT 31.4 (26.0-38.0) seconds Blood Type O Positive Antibody Screen Pending Result Diagrams: 06/12/19 14:22 06/12/19 14:22 Lab Statement: Any lab studies that have been ordered have been reviewed, and results considered in the medical decision making process. GIGU Course/Dx - Course Course Of Treatment: 58 y/o M with hx stomach ulcer and gastric bypass presents presents with nausea/vomiting tarry and grainy emesis, dizziness, light headedness starting at 0300 06/12/2019, and tarry stools and abomidnal pain for several days. Upon exam, the patient has strong peripheral pulses, significant melena during digital rectal exam, epigastric tenderness. Stool sample collected and sent to lab. Bloodwork results with no significant abnormalities except for WBC 11.1, Hgb 13.3, Hct 30, absolute monos 1.0, sodium 133, carbon dioxide 20, anion gap 12, BUN 59, BUN/creatinine 61.5, glucose 130. In the ED course, the patient was given normal saline fluids and pantoprazole. Spoke with Dr. Wilkinson, aluminum polisher, who agrees to admit patient. Paged Dr. Hernandez twice in the endoscopy suite then paged Dr. Roman at 1730. Discussed case with Dr. Roman at 1730 who understands patient has been persistently hypotensive. - Diagnoses Provider Diagnoses: Upper GI bleed, Hypovolemia - Physician Notifications Discussed Care Of Patient With: Dav Wilkinson Time Discussed With Above Provider: 15:20 Instructed by Provider To: Admit As Inpatient - Critical Care Time Critical Care Time: 30-74 min - 45 Discharge ED - Sign-Out/Discharge Documenting (check all that apply): Patient Departure - Discharge Plan Condition: Stable Disposition: ADMITTED TO [facility] - Attestation Statements Document Initiated by Scribe: Yes Documenting Scribe: Valerie Rey Provider For Whom Scribe is Documenting (Include Credential): Oswaldo Slade MD Scribe Attestation: Valerie Lawrence, scribed for Oswaldo Slade MD on 06/12/19 at 1746. Status of Scribe Document: Ready
[2019-06-12] MEDS ORDERED: Pantoprazole* 80 mg IN NS 80 MG/250 ML BAG IV ONE (15:30)
[2019-06-12] MEDS ORDERED: Dextrose 50% Syringe 50 ML* 25 GM/50 ML SYRINGE IV PUSH PRN (15:45)
[2019-06-12] MEDS: NS 0.9% 1000 ML** 2,000 ML IV ONE ×2 (15:59→16:00)
[2019-06-12] MEDS: Pantoprazole* 80 mg IN NS 80 MG/250 ML BAG IV SCH (16:00)
[2019-06-12] MEDS ORDERED: Pantoprazole IV* 40 MG IV STA (16:18)
[2019-06-12] MEDS ORDERED: Lactated Ringers 1000 ML Bag* 1,000 ML IV SCH (17:13)
[2019-06-12] MEDS ORDERED: Lactated Ringers 1000 ML Bag* 1,000 ML IV ONE (17:20)
--- NOTE | 2019-06-12 17:51 | CONS ---
CC: Dr. Dav Claire * CONSULTATION REPORT: DATE OF CONSULT: 06/12/19 REQUESTING PHYSICIAN: Dr. Wilkinson of ICU Medicine. REASON FOR CONSULT: Coffee-ground emesis, melena. HISTORY OF PRESENT ILLNESS: This is a pleasant 58-year-old male with a history of gastric bypass complicated by anastomotic ulcer in March of 2018, who presents to the emergency room today with coffee-ground emesis and melena. He admits to some generalized abdominal cramping. States that it is in the epigastric region, 3/10 cramping without radiation, worse with eating. He states that this morning he did wake up around 3 o'clock and had episodes of emesis that was black and coffee- ground in color. He did have breakfast this morning and a brief bit of lunch around 11 that did stay down. He has noted that the stool has been black today. This is similar to the presentation that he had with his anastomotic ulcer in 2018. He has not been taking any NSAIDs. He denies any NSAID usage since his previous ulcer in 2018. He states he did run out of his acid reflux medicine secondary to the insurance company not covering it about 3 to 4 weeks ago. He is not on any blood thinners. He denies any weight loss or weight gain. Denies any dysphagia, odynophagia. Remainder of the 14-point review of systems is grossly negative except for as described in the HPI. PAST MEDICAL HISTORY: Anastomotic ulcer in 2018, gastric bypass surgery, type 2 diabetes, obstructive sleep apnea, chronic pain, depression. PAST SURGICAL HISTORY: Gastric bypass, 2004, [facility]; recent EGD in March of 2018 with deep anastomotic ulcer, followup EGD a few months later did show healing. HOME MEDICATIONS: Include: 1. Pantoprazole. 2. Lisinopril. 3. Jardiance. 4. Metformin. 5. Wellbutrin. 6. Trazodone. 7. Adderall. 8. Gabapentin. 9. Multivitamin. 10. Zinc. 11. [place]. ALLERGIES: MORPHINE, which gives fatigue. FAMILY HISTORY: No family history of GI cancer or IBD. SOCIAL HISTORY: He is a former smoker. No alcohol use. REVIEW OF SYSTEMS: Remainder of the 14-point review of systems is grossly negative except for as described in the HPI. PHYSICAL EXAM: Vital Signs: Blood pressure is 79/52, pulse is 97, respiratory rate is 18, temperature is 96.9. In general, alert and oriented x3, in no acute distress. HEENT: Atraumatic, normocephalic. Pupils equal, round, reactive to light. Extraocular movements are intact. Conjunctivae are pink. Sclerae are anicteric. Cardiovascular: Regular rate and rhythm. S1, S2. Respiratory: Clear to auscultation bilaterally. Abdomen is soft. Mild tenderness to palpation in the epigastrium. Bowel sounds positive. No guarding or rebound. Extremities: No clubbing, no cyanosis, no edema. Psych: Appropriate mood and affect. LABORATORY DATA: Hemoglobin 13.3. INR 1.05. Sodium 133, BUN is 59, creatinine is 0.96, glucose 130. Total bilirubin 0.7, AST 13, ALT 17, alkaline phosphatase is 49. ASSESSMENT AND PLAN: This is a 58-year-old male with melena and coffee-ground emesis. 1. Melena. History of anastomotic ulcer in the past. High suspicion for return. We will give the patient a bolus of 80 mg IV pantoprazole and continue on a drip. He does need hemodynamic stabilization prior to endoscopy. He will be moved to the ICU. Blood pressure is slightly soft now; however, he is not grossly tachycardic. We will plan on H and Hs every 6 hours. Keep 2 units of PRBCs on hold at all times and we will plan for endoscopy when hemodynamic stability has been achieved. Notify the GI service if any changes in clinical status. He has not been on NSAIDs; however, his insurance has refused to cover his PPI over the last 3 to 4 weeks. 2. History of gastric bypass with anastomotic ulceration. As above. 3. Diabetes mellitus. Per primary team. [id number]/[facility] #: [id number] TIFFANIE
--- NOTE | 2019-06-12 17:59 | HP ---
HISTORY AND PHYSICAL: DATE OF ADMISSION: 06/12/19 REQUESTING PHYSICIAN: Dr. Oswaldo Slade. REASON FOR CONSULT: Upper GI bleed, hemodynamic instability. LIMITATIONS TO HISTORY AND PHYSICAL: None. HISTORY OF PRESENT ILLNESS: This is a 58-year-old man with a history of hypertension, diabetes, anxiety, depression, attention deficit hyperactivity disorder, prior upper GI bleeding, who presents with coffee-ground emesis and black tarry stools x1 day. He states that he has been having some abdominal discomfort for the last couple of days. His last bowel movement was 9:30 this morning. He also has some lightheadedness and dizziness. He had some coffee- ground emesis at approximately 3 p.m. today and came into the emergency room. In the emergency room, the patient was found to be markedly hypotensive with blood pressure in the 70s. He was started on IV fluids and a Protonix drip. The patient also reports that over the last 2 weeks he has not taken his home Protonix since his insurance company was denying the medication. The patient states that he had a prior duodenal ulcer in 2011 with extensive GI bleeding. He denies any chest pain. No shortness of breath. No palpitations. EMERGENCY DEPARTMENT COURSE: The patient was given IV fluids, his blood pressure improved mildly, and he was admitted to the ICU. PAST MEDICAL HISTORY: Hypertension, diabetes, anxiety, depression, arthritis, chronic back pain, GERD. PAST SURGICAL HISTORY: Left wrist, right shoulder melanoma excision, gastric bypass in 2003, carpal tunnel surgery in 1994. MEDICATIONS: Home medications: 1. Zinc. 2. Amphetamine. 3. Hydrocodone/acetaminophen. 4. Metformin. 5. Gabapentin. 6. Trazodone. 7. Calcium plus D. 8. Protonix. 9. Lisinopril. 10. Empagliflozin. 11. Multivitamin. 12. Bupropion. 13. Magnesium. Infusions: Protonix drip. Current medications: 1. Insulin sliding scale. 2. Normal saline bolus. 3. Protonix drip. ALLERGIES: To MORPHINE. FAMILY HISTORY: Hypertension, diabetes, neuropathy, Crohn's disease. SOCIAL HISTORY: No drugs, alcohol, or tobacco. REVIEW OF SYSTEMS: Negative except what is stated in the HPI. PHYSICAL EXAMINATION GENERAL: He is an adult male, awake, alert, in no acute distress. VITAL SIGNS: Temp 96.9, heart rate 97, O2 sat 96% on room air, blood pressure 79/52, respiratory rate 18. HEENT: NC/AT. PERRL. NECK: No JVD. No thyromegaly. No lymphadenopathy. RESPIRATORY: CTA bilaterally. No wheezing, rhonchi, or rales. CARDIOVASCULAR: S1, S2. Tachycardic. ABDOMEN: Soft. Mild tenderness in the left upper quadrant. EXTREMITIES: No clubbing, cyanosis, or edema. NEURO: A and O x3. CN II through XII grossly intact. SKIN: No apparent rashes or lesions. DIAGNOSTIC STUDIES/LAB DATA: Telemetry: Sinus tachycardia. LAB VALUES: White count 11.1, hemoglobin 13.3, platelets 379. INR 1.05. Sodium 133, potassium 4.7, chloride 101, carbon dioxide 20, anion gap 12, BUN 59 , creatinine 0.96, glucose 130, calcium 9.7. Total bilirubin 0.7, AST 13, ALT 17, alk phos 49. Albumin 4.6, total protein 6.9. IMAGING: None. IMPRESSION: This is a 58-year-old man with hypertension, diabetes, prior gastrointestinal bleeding, who presents with coffee-ground emesis and is likely having a recurrent gastrointestinal bleed and is currently hemodynamically unstable. PLAN: 1. Neuro: Pain control. 2. Cardiovascular: Hypotension secondary to GI bleeding and hypovolemic shock. Aggressive IV hydration. Transfuse as needed. Levophed for BP support if necessary. 3. Respiratory: Oxygenating well on room air. 4. ID: No evidence of infection. 5. GI: GI bleeding. Continue Protonix drip. Aggressive resuscitation. GI consult with Dr. Hernandez has been called. Case discussed. N.p.o. 6. Renal: Monitor I's and O's. Monitor electrolytes. 7. Heme: Anemia secondary to GI bleeding. Transfuse as needed. 8. Endocrine: Diabetes. Hold oral hypoglycemics. Sliding scale as needed. 9. Musculoskeletal: Pressure ulcer prevention, bedrest. Wounds: None. 10. Nutrition: N.p.o. 11. DVT prophylaxis is SCDs. 12. GI prophylaxis is Protonix drip. 13. Central line is none. Arterial line: None. Jacob catheter: None. 14. Disposition: Admit to the ICU. Expected length of stay is greater than 2 midnights. The patient requires ICU for hemodynamically unstable GI bleeding. The patient's clinical status is fair. 15. Code status is full code. [id number]/[facility] #: [id number] MTDD
[2019-06-12] MEDS ORDERED: Insulin LISPRO* 1 UNITS UNIT SUBCUT SCH (18:00)
[2019-06-12 18:19] LABS: Hematocrit 29 % (42-52); Hemoglobin 10.2 g/dL (14.0-18.0); Mean Corpuscular HGB Conc 35 g/dL (31-36); Mean Corpuscular Hemoglobin 30 pg (27-31); Mean Corpuscular Volume 85 fL (80-94); Mean Platelet Volume 8.3 fL (7.4-10.4); Platelet Count 257 10^3/uL (150-450); Red Blood Count 3.46 10^6 /uL (4.18-5.48); Red Cell Distribution Width 14 % (10-15); White Blood Count 7.8 10^3/uL (3.5-10.8)
[2019-06-12] MEDS: Lactated Ringers 1000 ML Bag* 1,000 ML IV SCH (19:54)
[2019-06-12] MEDS ORDERED: HYDROmorphone INJ* 0.5 MG/0.5 ML SYRINGE IV ONE (20:10)
[2019-06-12 23:16] LABS: Hematocrit 28 % (42-52); Hemoglobin 9.5 g/dL (14.0-18.0); Mean Corpuscular HGB Conc 34 g/dL (31-36); Mean Corpuscular Hemoglobin 29 pg (27-31); Mean Corpuscular Volume 87 fL (80-94); Platelet Count 253 10^3/uL (150-450); Red Blood Count 3.25 10^6 /uL (4.18-5.48); Red Cell Distribution Width 14 % (10-15); White Blood Count 6.7 10^3/uL (3.5-10.8)
[2019-06-12] MEDS: Insulin LISPRO* 1 UNITS UNIT SUBCUT SCH (23:42)
[2019-06-13] MEDS ORDERED: Lactated Ringers 1000 ML Bag* 1,000 ML IV SCH (01:00)
[2019-06-13] MEDS: Pantoprazole* 80 mg IN NS 80 MG/250 ML BAG IV SCH ×2 (01:58→11:53)
[2019-06-13] MEDS: Insulin LISPRO* 1 UNITS UNIT SUBCUT SCH ×6 (04:09→19:58)
[2019-06-13] MEDS: HYDROmorphone INJ* 0.5 MG/0.5 ML SYRINGE IV SLOW PU PRN ×3 (05:45→22:20)
[2019-06-13 06:07] LABS: Hematocrit 31 % (42-52); Hemoglobin 10.4 g/dL (14.0-18.0); Mean Corpuscular HGB Conc 34 g/dL (31-36); Mean Corpuscular Hemoglobin 30 pg (27-31); Mean Corpuscular Volume 87 fL (80-94); Mean Platelet Volume 7.9 fL (7.4-10.4); Platelet Count 228 10^3/uL (150-450); Red Cell Distribution Width 14 % (10-15); White Blood Count 6.6 10^3/uL (3.5-10.8)
[2019-06-13 06:45] LABS: Calcium 7.5 mg/dL (8.6-10.3); Magnesium 1.7 mg/dL (1.9-2.7); Potassium 3.8 mmol/L (3.5-5.0)
[2019-06-13 06:51] LABS: EGFR African American 136.6 (>60); EGFR Non-African American 112.9 (>60)
--- NOTE | 2019-06-13 08:27 | PN ---
Progress Note - Progress Note Date of Service: 06/13/19 Note: Progress Note -- Critical Care 24 hour events/significant events: Transfused 1 unit prbc overnight. Hgb stabilized. BP borderline. Awake and alert. ROS: negative except for pertinent positives mentioned above; Tele: NSR Vitals: Vital Signs: Temp Pulse Resp BP Pulse Ox 97.4 F 77 14 97/60 97 06/13/19 07:58 06/13/19 06:01 06/13/19 06:48 06/13/19 06:01 06/13/19 06:01 O2/Vent: Room air Infusions: Protonix LR@125 Medications: Dextrose (D50w Syringe 50 Ml*) 12.5 gm IV PUSH .FOR FS < 60 - SS PRN PRN Reason: FS < 60 Hydromorphone HCl (Dilaudid Inj*) 0.5 mg IV SLOW PU Q6H PRN PRN Reason: PAIN - SEVERE Last Admin: 06/13/19 05:45 Dose: 0.5 mg Pantoprazole Sodium (Protonix Iv Bag*) 80 mg in 250 mls @ 25 mls/hr IV Q10H [facility] Last Admin: 06/13/19 01:58 Dose: 25 mls/hr Lactated Ringer's (Lactated Ringers 1000 Ml Bag*) 1,000 mls @ 125 mls/hr IV PER RATE [facility] Last Admin: 06/12/19 19:54 Dose: 125 mls/hr Lactated Ringer's (Lactated Ringers 1000 Ml Bag*) 1,000 mls @ 0 mls/hr IV WIDE OPEN [facility] Stop: 06/13/19 23:59 Last Admin: 06/13/19 00:05 Dose: 999 mls/hr Insulin Human Lispro (Humalog*) 0 units SUBCUT Q4H [facility]; Protocol Last Admin: 06/13/19 04:09 Dose: Not Given Physical Exam: Constitutional: awake, alert, no distress, no diaphoresis Head: normocephalic, atraumatic Eyes: no pallor, no icterus ENT: moist mucous membranes Neck: soft, supple, no jvd, no stridor CVS: normal rate, regular, no murmur Chest/Resp: bilateral air entry, no rhales, no wheeze, no rhonchi, no acc muscle use Abdomen/GI: soft, Mild LUQ tenderness Ext/Msk: warm, pulses+, no edema Skin: intact, warm Neuro: awake, alert, orientedx3, moving all extremities, no gross focal deficit Psych: normal affect Labs: Laboratory Results - last 24 hr 06/12/19 06/12/19 06/12/19 14:22 14:22 14:22 WBC 11.1 H RBC 4.64 Hgb 13.3 L Hct 40 L MCV 86 MCH 29 MCHC 33 RDW 14 Plt Count 379 MPV 8.5 Neut % (Auto) 57.7 Lymph % (Auto) 28.3 [place] % (Auto) 9.1 Eos % (Auto) 4.4 Baso % (Auto) 0.5 Absolute Neuts (auto) 6.4 Absolute Lymphs (auto) 3.1 Absolute Monos (auto) 1.0 H Absolute Eos (auto) 0.5 Absolute Basos (auto) 0.1 Absolute Nucleated RBC 0.0 Nucleated RBC % 0.0 INR (Anticoag Therapy) 1.05 APTT 31.4 Sodium 133 L Potassium 4.7 Chloride 101 Carbon Dioxide 20 L Anion Gap 12 H BUN 59 H Creatinine 0.96 Est GFR ( Amer) 98.0 Est GFR (Non-Af Amer) 81.0 BUN/Creatinine Ratio 61.5 H Glucose 130 H Calcium 9.7 Magnesium Total Bilirubin 0.70 AST 13 ALT 17 Alkaline Phosphatase 49 Total Protein 6.9 Albumin 4.6 Globulin 2.3 Albumin/Globulin Ratio 2.0 Blood Type Antibody Screen Crossmatch 06/12/19 06/12/19 06/12/19 14:22 18:10 23:09 WBC 7.8 6.7 RBC 3.46 L 3.25 L Hgb 10.2 L 9.5 L Hct 29 L 28 L MCV 85 87 MCH 30 29 MCHC 35 34 RDW 14 14 Plt Count 257 253 MPV 8.3 8.0 Neut % (Auto) Lymph % (Auto) [place] % (Auto) Eos % (Auto) Baso % (Auto) Absolute Neuts (auto) Absolute Lymphs (auto) Absolute Monos (auto) Absolute Eos (auto) Absolute Basos (auto) Absolute Nucleated RBC Nucleated RBC % INR (Anticoag Therapy) APTT Sodium Potassium Chloride Carbon Dioxide Anion Gap BUN Creatinine Est GFR ( Amer) Est GFR (Non-Af Amer) BUN/Creatinine Ratio Glucose Calcium Magnesium Total Bilirubin AST ALT Alkaline Phosphatase Total Protein Albumin Globulin Albumin/Globulin Ratio Blood Type O Positive Antibody Screen Negative Crossmatch See Detail 06/13/19 06/13/19 05:53 05:53 WBC 6.6 RBC 3.50 L Hgb 10.4 L Hct 31 L MCV 87 MCH 30 MCHC 34 RDW 14 Plt Count 228 MPV 7.9 Neut % (Auto) Lymph % (Auto) [place] % (Auto) Eos % (Auto) Baso % (Auto) Absolute Neuts (auto) Absolute Lymphs (auto) Absolute Monos (auto) Absolute Eos (auto) Absolute Basos (auto) Absolute Nucleated RBC Nucleated RBC % INR (Anticoag Therapy) APTT Sodium 135 Potassium 3.8 Chloride 106 Carbon Dioxide 25 Anion Gap 4 BUN 36 H Creatinine 0.72 Est GFR ( Amer) 136.6 Est GFR (Non-Af Amer) 112.9 BUN/Creatinine Ratio 50.0 H Glucose 88 Calcium 7.5 L Magnesium 1.7 L Total Bilirubin AST ALT Alkaline Phosphatase Total Protein Albumin Globulin Albumin/Globulin Ratio Blood Type Antibody Screen Crossmatch Imaging: None Assessment: 58M with htn, dm, h/o gi bleed who presents with recurrent GI bleeding Plan: Neuro- - pain control CVS- htn - bp borderline - hold home anti-hypertensive - has not required vasopressors Resp- oxygenating well on room air ID- no evidence of infection GI- gi bleed - ppi gtt - npo - GI for EGD today Renal- montior i/o - monitor lytes Heme- anemia - 2/2 gi bleeding - serial cbc - transfuse prn Endo- DM - check fs, niss Musculsk- pressure ulcer prophylaxis. Bedrest. Wounds- none Nutrition- npo DVT prophylaxis:scds GI prophylaxis:ppi Central Line: none Arterial Line: none Jacob Cathetor: none Disposition: Patient requires Critical Care/ICU for hemodyamically unstable gi bleeding. Patient clinical status: Fair Code Status:Full
[2019-06-13] MEDS ORDERED: Magnesium Sulfate 1 GM IV* 1 GM/100 ML BAG IV ONE (08:28)
[2019-06-13 12:42] LABS: Hematocrit 33 % (42-52); Hemoglobin 10.6 g/dL (14.0-18.0); Mean Corpuscular HGB Conc 33 g/dL (31-36); Mean Corpuscular Hemoglobin 29 pg (27-31); Mean Corpuscular Volume 89 fL (80-94); Mean Platelet Volume 8.5 fL (7.4-10.4); Platelet Count 224 10^3/uL (150-450); Red Blood Count 3.67 10^6 /uL (4.18-5.48); Red Cell Distribution Width 14 % (10-15); White Blood Count 6.7 10^3/uL (3.5-10.8)
[2019-06-13] MEDS ORDERED: Midazolam* 1 MG/ML 10 ML VIAL (10 MG) ONE (15:10)
[2019-06-13] MEDS ORDERED: fentaNYL* 50 MCG/ML 2 ML VIAL (100 MCG VIAL) ONE (15:10)
[2019-06-13] MEDS: Lactated Ringers 1000 ML Bag* 1,000 ML IV SCH (15:30)
--- NOTE | 2019-06-13 16:20 | PN ---
Progress Note - Progress Note Date of Service: 06/13/19 Note: GI Brief EGD Note E: Nml G: Pouch about 9-10cm no blood Anastomosis: clean based 1cm ulceration. Narrowing to outlet but adult scope passes (9.9mm) J: normal for length examined No fresh or old blood on entire exam Impression/Plan Anastomotic ulcer- clean based PPI PO BID x 3 months, then once daily indefinitely. No NSAIDs May eventually run into trouble with narrowed outlet, follow up with Dr. Claire as outpatient to discuss in about 1 month Full liquids tonight If hgb stable 06/14- advance diet and may be discharged. Matthieu Hernandez DO 06/13/19 1600
[2019-06-13] MEDS: Pantoprazole TAB * 40 MG TAB PO SCH (19:58)
--- NOTE | 2019-06-14 02:49 | PRO ---
CC: Colton Garcia NP; Dav Claire MD ESOPHAGOGASTRODUODENOSCOPY REPORT: DATE OF PROCEDURE: 06/13/19 PRIMARY CARE PHYSICIAN: Colton Garcia NP. INDICATION FOR PROCEDURE: Melena. PROCEDURE PERFORMED: Complete esophagogastroduodenoscopy with biopsies. MEDICATIONS GIVEN: Include: 1. 7 mg IV midazolam. 2. 25 mcg IV fentanyl. DESCRIPTION OF PROCEDURE: After the EGD procedure, including the risk, benefits, and alternatives, w ith the risks not limited to perforation, surgery, missed lesions, and/or were explained to the patient, written informed consent was obtained, IV medication was given, and a bite-block was placed between the teeth. The adult Olympus gastroscope was then inserted into the patient's oropharynx int o the tubular esophagus. Tubular esophagus was normal in appearance. The scope was advanced through the GE junction into the gastric pouch. This was about 9 to 10 cm, little irregular appearing overa ll, may have had an atypical surgery. No fresh or old blood was seen. No inflammation. At the dist al portion at the anastomosis, a clean 1 cm based ulcer was visualized within the channel. This was pretty tight through this area. However, the adult scope at 9.9 mm was able to traverse this area. No high risk features were identified. No fresh or old blood was seen. The scope was then advanced into the jejunum and this was normal in appearance for the length examined. Again, no fresh or old b lood was visualized. The scope was then removed from the patient. He tolerated the procedure well. He returned to the recovery room in stable condition. IMPRESSION: 1. Complete esophagogastroduodenoscopy with biopsies. 2. Clean based anastomotic ulcer. 3. Gastric outlet narrowing at the anastomosis. RECOMMENDATIONS: Recommend PPI daily. It was recently discontinued as his insurance would not cover it. In fact, I would actually recommend PPI b.i.d. for 3 months' time and then decreasing to once d aily indefinitely. He does not take NSAIDs and he does not smoke, which are the other risk factors f or an anastomotic ulceration. Discussed he may have difficulty in the future with narrowing here. Re commend full liquids today. If hemoglobin stable, on 06/14/19, may advance diet and discharge if fee ling well. I recommend he follow up with his primary drier tender Dr. Claire as an outpatient for further consideration of the narrowed outlet and potentially repeat EGD in the future to recheck the anastomotic ulceration. [id number]/[facility] #: [id number]
[2019-06-14 06:57] LABS: ABS Eosinophils 0.4 10^3/ul (0-0.6); ABS Lymphocytes 1.6 10^3/ul (1.0-4.8); ABS Monocytes 0.5 10^3/ul (0-0.8); ABS Neutrophils 3.1 10^3/ul (1.5-7.7); Eosinophil % 7.6 %; Hematocrit 32 % (42-52); Hemoglobin 11.1 g/dL (14.0-18.0); Lymphocyte % 28.3 %; Mean Corpuscular HGB Conc 34 g/dL (31-36); Mean Corpuscular Hemoglobin 30 pg (27-31); Mean Corpuscular Volume 86 fL (80-94); Mean Platelet Volume 7.8 fL (7.4-10.4); Platelet Count 247 10^3/uL (150-450); Red Blood Count 3.76 10^6 /uL (4.18-5.48); Red Cell Distribution Width 14 % (10-15); White Blood Count 5.7 10^3/uL (3.5-10.8)
[2019-06-14 07:35] LABS: Calcium 8.1 mg/dL (8.6-10.3); Magnesium 1.9 mg/dL (1.9-2.7); Potassium 4.1 mmol/L (3.5-5.0)
[2019-06-14 07:41] LABS: BUN/Creatinine Ratio 19.6 (8-20); EGFR African American 182.6 (>60); EGFR Non-African American 150.9 (>60)
[2019-06-14] MEDS: Pantoprazole TAB * 40 MG TAB PO SCH (08:44)
[2019-06-14] MEDS: Insulin LISPRO* 1 UNITS UNIT SUBCUT SCH ×2 (08:47→12:28)
[2019-06-14] MEDS ORDERED: HYDROcodone/ACETAMIN 5-325 MG* 1 TAB PO PRN (10:14)
[2019-06-14 13:12] VITALS: BP 105/78
--- NOTE | 2019-06-14 15:53 | DS ---
CC: Dr. Claire; Colton Garcia NP * DISCHARGE SUMMARY: DATE OF ADMISSION: 06/12/19 DATE OF DISCHARGE: 06/14/19 PRINCIPAL DISCHARGE DIAGNOSES: 1. Anastomotic ulcer. 2. Upper gastrointestinal bleed with hemodynamic instability. 3. Acute blood loss anemia. 4. Gastric outlet narrowing. SECONDARY DISCHARGE DIAGNOSES: 1. Type 2 diabetes. 2. Hypertension. 3. Anxiety/depression. 4. Chronic pain syndrome. 5. Arthritis. 6. History of gastric bypass. MEDICATIONS FOR DISCHARGE: 1. Zinc 30 mg b.i.d. 2. Adderall 20 mg t.i.d. 3. [place] 1 tab q.4 to 6 hours p.r.n. pain. 4. Metformin 500 mg 4 times a day. 5. Gabapentin 600 mg t.i.d. 6. Trazodone 200 mg q.h.s. p.r.n. insomnia. 7. Calcium carbonate/vitamin D3 1000 mg b.i.d. 8. Pantoprazole 40 mg b.i.d. 9. Lisinopril 20 mg daily. 10. Jardiance 25 mg daily. 11. Multivitamin b.i.d. 12. Wellbutrin 450 mg daily. 13. Magnesium 30 mg b.i.d. PHYSICAL EXAM AT THE TIME OF DISCHARGE: Temperature 98.5, respiratory rate 16, pulse ox 100% on room air, blood pressure 105/78, heart rate 76. General: Alert, well-appearing man, in no distress, he is walking in the hallways comfortably. HEENT: Pupils equal, round, reactive to light. Oral mucosa is moist. Neck: No JVP. No adenopathy. Chest: Regular rate and rhythm with no murmurs. His lungs are clear bilaterally. Abdomen: Soft, nontender, nondistended. There is an old incision in the upper mid abdomen. His liver is nonpalpable. No CVA tenderness. Extremities: No edema, rashes, or ulcers. LABORATORY DATA: Hemoglobin on the day of discharge is 11.1. CONSULTATIONS DURING THIS ADMISSION: Dr. Matthieu Hernandez from Gastroenterology. PROCEDURES DURING THIS ADMISSION: An EGD was performed on 06/13/[address] Hernandez and showed a clean-based anastomotic ulcer with gastric outlet narrowing at the anastomosis. HOSPITAL COURSE BY PROBLEM: 1. Upper gastrointestinal bleed with hemodynamic instability leading to acute blood loss anemia. At admission, Mr. Mckeon was found to be hypotensive. After presenting with the chief complaint of melena and hematemesis, he was admitted to the ICU for hemodynamic monitoring and support. He received IV fluids for volume resuscitation and was started on a Protonix drip. He received 1 unit of packed red blood cells during this admission and underwent an EGD with Dr. Hernandez on 06/13/19 where an anastomotic ulcer was found. Mr. Mckeon had not taken his Protonix for a few weeks prior to admission due to insurance barriers. He will go back to taking Protonix twice a day at the time of discharge. His discharge hemoglobin is over 11 and he will follow up with Dr. Claire, his primary associate creative director. 2. Gastric outlet narrowing. This was incidentally found on EGD. He was instructed to follow up with Dr. Claire regarding this. 3. Diabetes. His home diabetes medications were held during this admission. They are now restarted at the time of discharge. 4. Hypertension. His home antihypertensives were held during this admission, but will be started at the time of discharge. 5. Chronic pain syndrome. Mr. Mckeon was continued on home pain medications and these will be continued at discharge. 6. Disposition. Mr. Mckeon is being discharged to home on 06/14/19 after tolerating a full diet and with a stabilized hemoglobin. He will resume Protonix twice a day. I will make a followup appointment with his primary care provider and his primary associate creative director. He knows to return to the emergency department should he develop any recurrent melena, hematemesis, lightheadedness, syncope or any other new symptoms. [id number]/[facility] #: [id number] [facility]
== END 2019-06-14 15:30 | disposition home or self-care (01) | DRG 241 ==
LOC: ED 12:59 → ICU 15:39 → MED 06-13 16:07
PROVIDERS: ADMIT Internal Medicine; ATTEND Internal Medicine
PROC: 0DJ08ZZ Inspection of Upper Intestinal Tract, Via Natural or Artificial Opening Endoscopic (ICD-10-PCS; principal; 2019-06-13)
PROC: 30233N1 Transfusion of Nonautologous Red Blood Cells into Peripheral Vein, Percutaneous Approach (ICD-10-PCS; 2019-06-13)
DX: K28.9 Gastrojejunal ulcer, unspecified as acute or chronic, without hemorrhage or perforation (principal); R57.1 Hypovolemic shock; D62 Acute posthemorrhagic anemia; K31.89 Other diseases of stomach and duodenum; E11.9 Type 2 diabetes mellitus without complications; F90.9 Attention-deficit hyperactivity disorder, unspecified type; I10 Essential (primary) hypertension; F41.8 Other specified anxiety disorders; G89.4 Chronic pain syndrome; M19.90 Unspecified osteoarthritis, unspecified site; I95.9 Hypotension, unspecified; K92.0 Hematemesis; K21.9 Gastro-esophageal reflux disease without esophagitis; G47.33 Obstructive sleep apnea (adult) (pediatric); F32.9 Major depressive disorder, single episode, unspecified; Z85.820 Personal history of malignant melanoma of skin; Z98.84 Bariatric surgery status; Z79.84 Long term (current) use of oral hypoglycemic drugs; Z79.1 Long term (current) use of non-steroidal anti-inflammatories (NSAID); Z79.899 Other long term (current) drug therapy; Z88.5 Allergy status to narcotic agent; Z82.49 Family history of ischemic heart disease and other diseases of the circulatory system; Z83.3 Family history of diabetes mellitus; Z83.79 Family history of other diseases of the digestive system; Z82.0 Family history of epilepsy and other diseases of the nervous system; Z87.891 Personal history of nicotine dependence
CPT/HCPCS: 36415; 80048; 80053; 82272; 83735; 85025; 85027; 85610; 85730; 86850; 86900; 86901; 86922; 87641; 99156; 99285; A9270-GY; J1170; J2250; J3010; J3475; P9040